=== PATIENT | female | born 1945 | race Caucasian/White ===

== ENCOUNTER → 2017-11-03 10:26 | Outpatient (CLI) | payer OTHER, SELFPAY ==
--- NOTE | 2017-11-03 | DI.MG.S_ITS ---
BILATERAL DIGITAL SCREENING MAMMOGRAM 3D/2D WITH CAD: 11/03/2017 CLINICAL: Baseline exam by default. Routine screening. No prior exams were available for comparison. There are scattered fibroglandular elements in both breasts. Current study was also evaluated with a Computer Aided Detection (CAD) system. No significant masses, calcifications, or other findings are seen in either breast. IMPRESSION: NEGATIVE There is no mammographic evidence of malignancy. A 1 year screening mammogram is recommended. This exam was interpreted at Station ID: [id number]. NOTE: For mammograms, a report in lay terms will be sent to the patient. Approximately 15% of breast malignancies will not be visualized mammographically. In the management of a palpable breast mass, a negative mammogram must not discourage biopsy of a clinically suspicious lesion. Electronically Signed By: Lc alex/ledy:11/04/2017 07:32:04 letter sent: Normal Exam ACR BI-RADS Category 1: Negative 3341F
== END ==
PROVIDERS: PCP Internal Medicine; Visit Provider Internal Medicine
DX: Z12.31 Encounter for screening mammogram for malignant neoplasm of breast (principal)
CPT/HCPCS: 77063; 77067

== ENCOUNTER → 2018-01-12 07:18 | Outpatient (CLI) | payer OTHER, SELFPAY ==
[2018-01-12 08:07] LABS: Alanine Aminotransferase 30 IU/L (9-52); Aspartate Aminotransferase 26 IU/L (14-36); BUN Creatinine Ratio 24.3 (6-22); Blood Urea Nitrogen 17 mg/dL (7-17); Calcium 8.9 mg/dL (8.4-10.2); Carbon Dioxide 32 mmol/L (22-32); Chloride 103 mmol/L (98-107); Cholesterol 248 mg/dL (140-199); Estimated Glomerular Filt Rate > 60.0 mL/min (>60); Glucose 106 mg/dL (80-110); HDL Cholesterol 56 mg/dL (40-60); HEMOLYSIS < 15 (0-50); LDL Cholesterol Calculated 160 mg/dL (<100); Potassium 4.1 mmol/L (3.4-5.1); Sodium 144 mmol/L (137-145); Triglycerides 158 mg/dL (35-150)
[2018-01-12 09:14] LABS: Vitamin D 25 Hydroxy (D3) 28.5 ng/mL (30.0-100.0)
== END ==
PROVIDERS: PCP Internal Medicine; Visit Provider Internal Medicine
DX: M85.80 Other specified disorders of bone density and structure, unspecified site (principal); E78.5 Hyperlipidemia, unspecified; E55.9 Vitamin D deficiency, unspecified
CPT/HCPCS: 36415; 80048; 80061; 82306; 84450; 84460

== ENCOUNTER → 2018-11-12 09:15 | Outpatient (CLI) | payer OTHER, SELFPAY ==
--- NOTE | 2018-11-12 | DI.MG.S_ITS ---
BILATERAL DIGITAL SCREENING MAMMOGRAM 3D/2D WITH CAD: 11/12/2018 CLINICAL: Routine screening. Comparison is made to exam dated: 11/03/2017 [facility]. There are scattered fibroglandular elements in both breasts. Current study was also evaluated with a Computer Aided Detection (CAD) system. No significant masses, calcifications, or other findings are seen in either breast. There has been no significant interval change. IMPRESSION: NEGATIVE There is no mammographic evidence of malignancy. A 1 year screening mammogram is recommended. This exam was interpreted at Station ID: [id number]. NOTE: For mammograms, a report in lay terms will be sent to the patient. Approximately 15% of breast malignancies will not be visualized mammographically. In the management of a palpable breast mass, a negative mammogram must not discourage biopsy of a clinically suspicious lesion. Electronically Signed By: Uriel nolasco/ledy:11/14/2018 07:43:25 letter sent: Normal Exam ACR BI-RADS Category 1: Negative 3341F
== END ==
PROVIDERS: PCP Internal Medicine; Visit Provider Internal Medicine
DX: Z12.31 Encounter for screening mammogram for malignant neoplasm of breast (principal)
CPT/HCPCS: 77063; 77067

== ENCOUNTER → 2020-06-12 10:12 | Outpatient (CLI) | payer OTHER, SELFPAY ==
--- NOTE | 2020-06-12 10:14 | DI.MG.S_ITS ---
BILATERAL DIGITAL SCREENING MAMMOGRAM 3D/2D WITH CAD: 06/12/2020 CLINICAL: Routine screening. Comparison is made to exams dated: 11/12/2018 mammogram and 11/03/2017 mammogram - [facility]. There are scattered fibroglandular elements in both breasts. Current study was also evaluated with a Computer Aided Detection (CAD) system. No significant masses, calcifications, or other findings are seen in either breast. There has been no significant interval change. IMPRESSION: NEGATIVE There is no mammographic evidence of malignancy. A 1 year screening mammogram is recommended. This exam was interpreted at Station ID: [id number]. NOTE: For mammograms, a report in lay terms will be sent to the patient. Approximately 15% of breast malignancies will not be visualized mammographically. In the management of a palpable breast mass, a negative mammogram must not discourage biopsy of a clinically suspicious lesion. Electronically Signed By: Uriel nolasco/ledy:06/12/2020 13:13:37 letter sent: Normal Exam ACR BI-RADS Category 1: Negative 3341F
== END ==
PROVIDERS: PCP Student in an Organized Health Care Education/Training Program; Referring Provider Student in an Organized Health Care Education/Training Program; Visit Provider Student in an Organized Health Care Education/Training Program
DX: Z12.31 Encounter for screening mammogram for malignant neoplasm of breast (principal); Z78.0 Asymptomatic menopausal state; M85.852 Other specified disorders of bone density and structure, left thigh
CPT/HCPCS: 77063; 77067; 77080

== ENCOUNTER → 2021-05-26 10:01 | Outpatient (CLI) | payer OTHER, SELFPAY ==
[2021-05-26 10:52] LABS: Add Manual Diff / Slide Review NO; Basophils Absolute Auto 100 /uL (0-100); Basophils Percent Auto 0.9 % (0-2); Eosinophils Absolute Auto 300 /uL (0-450); Eosinophils Percent Auto 5.4 % (2-4); Hematocrit 40.5 % (36-46); Hemoglobin 13.8 g/dL (12.0-16.0); Lymphocytes Absolute Auto 2000 /uL (1100-4500); Mean Corpuscular HGB Conc 34.1 % (30-36); Mean Corpuscular Hemoglobin 30.2 PG (26-34); Mean Corpuscular Volume 88.7 fL (80-100); Monocytes Absolute Auto 400 /uL (0-900); Monocytes Percent Auto 6.5 % (3-14); Neutrophils Absolute Auto 3300 /uL (1500-7000); Neutrophils Percent Auto 54.2 % (50-75); Platelet Count 295 X10^3/uL (150-400); Red Blood Cell Count 4.57 X10^6/uL (4.0-5.2); Red Cell Distribution Width 12.4 % (11.6-14.8); White Blood Cell Count 6.1 X10^3/uL (4.5-11.0)
[2021-05-26 11:30] LABS: Alanine Aminotransferase 24 IU/L (<35); Albumin 4.5 g/dL (3.5-5.0); Albumin Globulin Ratio 1.5 (1.0-2.8); Alkaline Phosphatase 84 U/L (38-126); Aspartate Aminotransferase 24 IU/L (14-36); BUN Creatinine Ratio 21.3 (6-22); Bilirubin Total 0.6 mg/dL (0.2-1.3); Blood Urea Nitrogen 17 mg/dL (7-17); Calcium 9.6 mg/dL (8.4-10.2); Carbon Dioxide 29 mmol/L (22-32); Chloride 104 mmol/L (98-107); Estimated Glomerular Filt Rate > 60.0 mL/min (>60); Glucose 109 mg/dL (80-110); HEMOLYSIS < 15 (0-50); Potassium 4.6 mmol/L (3.4-5.1); Sodium 139 mmol/L (137-145); Total Protein 7.5 g/dL (6.3-8.2)
[2021-05-26 11:37] LABS: Vitamin D 25 Hydroxy (D3) 51.1 ng/mL (30.0-100.0)
== END ==
PROVIDERS: PCP Student in an Organized Health Care Education/Training Program; Referring Provider Student in an Organized Health Care Education/Training Program; Visit Provider Student in an Organized Health Care Education/Training Program
DX: E55.9 Vitamin D deficiency, unspecified (principal); B35.1 Tinea unguium; Z11.59 Encounter for screening for other viral diseases; Z79.899 Other long term (current) drug therapy
CPT/HCPCS: 36415; 80053; 82306; 85025; 87522

== ENCOUNTER → 2021-06-16 10:26 | Outpatient (CLI) | payer OTHER, SELFPAY ==
--- NOTE | 2021-06-16 10:27 | DI.MG.S_ITS ---
BILATERAL DIGITAL SCREENING MAMMOGRAM 3D/2D WITH CAD: 06/16/2021 CLINICAL: Routine screening. Comparison is made to exams dated: 06/12/2020 mammogram, 11/12/2018 mammogram, and 11/03/2017 mammogram - [facility]. There are scattered fibroglandular elements in both breasts. Current study was also evaluated with a Computer Aided Detection (CAD) system. No significant masses, calcifications, or other findings are seen in either breast. There has been no significant interval change. IMPRESSION: NEGATIVE There is no mammographic evidence of malignancy. A 1 year screening mammogram is recommended. This exam was interpreted at Station ID: [id number]. NOTE: For mammograms, a report in lay terms will be sent to the patient. Approximately 15% of breast malignancies will not be visualized mammographically. In the management of a palpable breast mass, a negative mammogram must not discourage biopsy of a clinically suspicious lesion. Electronically Signed By: Uriel león/ledy:06/16/2021 12:51:25 letter sent: Normal Exam ACR BI-RADS Category 1: Negative 3341F
== END ==
PROVIDERS: PCP Student in an Organized Health Care Education/Training Program; Referring Provider Student in an Organized Health Care Education/Training Program; Visit Provider Student in an Organized Health Care Education/Training Program
DX: Z12.31 Encounter for screening mammogram for malignant neoplasm of breast (principal)
CPT/HCPCS: 77063; 77067

== ENCOUNTER → 2021-07-15 07:41 | Outpatient (CLI) | payer OTHER, SELFPAY | PROVIDERS: PCP Student in an Organized Health Care Education/Training Program; Visit Provider Physician Assistant | DX: L01.00 Impetigo, unspecified (principal) | CPT/HCPCS: 87070; 87205 ==

== ENCOUNTER → 2022-04-16 14:20 | Outpatient (CLI) | payer OTHER, SELFPAY ==
[2022-04-16 15:24] LABS: BUN Creatinine Ratio 22.5 (6-22); Blood Urea Nitrogen 16 mg/dL (7-17); Calcium 9.2 mg/dL (8.4-10.2); Carbon Dioxide 29 mmol/L (22-32); Chloride 103 mmol/L (98-107); Cholesterol 224 mg/dL (140-199); Estimated Glomerular Filt Rate > 60 mL/min (>60); Glucose 99 mg/dL (80-110); HDL Cholesterol 56 mg/dL (40-60); HEMOLYSIS < 15 (0-50); LDL Cholesterol Calculated 138 mg/dL (<100); Potassium 4.3 mmol/L (3.4-5.1); Sodium 139 mmol/L (137-145); Triglycerides 151 mg/dL (35-150)
== END ==
PROVIDERS: PCP Student in an Organized Health Care Education/Training Program; Referring Provider Student in an Organized Health Care Education/Training Program; Visit Provider Student in an Organized Health Care Education/Training Program
DX: E78.00 Pure hypercholesterolemia, unspecified (principal); N17.9 Acute kidney failure, unspecified
CPT/HCPCS: 36415; 80048; 80061

== ENCOUNTER → 2022-06-15 09:41 | Outpatient (CLI) | payer OTHER, SELFPAY ==
--- NOTE | 2022-06-15 09:56 | DI.DEXA.S_ITS ---
Bone Density Report Name: JEFF RODRÍGUEZ Age: 77 Sex: Female Ethnicity: White Date of : 1945 Indication: osteopenia; Referring Provider: NIKHIL ANDREWS Study: Bone densitometry was performed. Exam Date: June 15, 2022 Accession number: [id number] Bone Density: Region BMD T-score Z-score Classification AP Spine(L1, L2, L3) 0.917 -0.9 1.5 Normal Femoral Neck (Left) 0.589 -2.3 -0.2 Osteopenia Total Hip (Left) 0.785 -1.3 0.5 Osteopenia Femoral Neck (Right) 0.666 -1.7 0.4 Osteopenia Total Hip (Right) 0.817 -1.0 0.8 Normal Total Hip Mean 0.801 -1.2 0.7 Osteopenia World Health Organization criteria for BMD impression classify patients as: Normal (T-score at or above -1.0), Osteopenia (T-score between -1.0 and -2.5), or Osteoporosis (T-score at or below -2.5). 10-year Fracture Risk(1): Major Osteoporotic Fracture 15% Hip Fracture 4.3% Reported Risk Factors: [place] (), Neck BMD=0.589, BMI=25.7 (1) FRAX(R) Version 3.08. Fracture probability calculated for an untreated patient. Fracture probability may be lower if the patient has received treatment. Previous Exams: -- Region Exam Age BMD T-score BMD Change BMD Change Date g/cm2 vs Baseline vs Previous -- AP Spine (L1-L3) 06/15/2022 77 0.917 -0.9 0.018 (2.0%)# 0.018 (2.0%)# 06/12/2020 75 0.899 -1.1 Total Hip(Left) 06/15/2022 77 0.785 -1.3 -0.013 (-1.6%)# -0.013 (-1.6%)# 06/12/2020 75 0.798 -1.2 Total Hip(Right) 06/15/2022 77 0.817 -1.0 -0.001 (-0.1%)# -0.001 (-0.1%)# 06/12/2020 75 0.817 -1.0 -- *Denotes significance at 95% confidence level, LSC for AP Spine = 0.022 g/cm2, LSC for Total Hip = 0.027 g/cm2 # Denotes dissimilar scan types or analysis methods Impression: The patient has low bone mass, based on the Left Femoral Neck T-score. The patient has an estimated ten-year risk of hip fracture of 4.3% and an estimated ten-year risk of major fracture of 15%, based on the WHO FRAX algorithm. No significant bone loss was observed. Discussion: BONE DENSITY IS LOW AT ONE OR MORE SKELETAL SITES. THE PATIENT'S BMD AND CLINICAL RISK FACTORS CONTRIBUTE TO THIS PATIENT'S INCREASED RISK OF FRACTURE. This patient's lowest T-score is low at one or more skeletal sites. It meets the World Health Organization's (WHO) criteria for ?low bone mass? (T-score between -1.0 and -2.5). The patient's 10-year risk of hip fracture as calculated by FRAX exceeds the threshold where pharmacological therapy is recommended by the National Osteoporosis Foundation (NOF). However, all treatment decisions require clinical judgment and consideration of individual patient factors, including patient preferences, comorbidities, previous drug use, risk factors not captured in the FRAX model (e.g., frailty, falls, vitamin D deficiency, increased bone turnover, interval significant decline in bone density) and possible under or overestimation of fracture risk by FRAX. The patient should follow a healthful lifestyle (good nutrition with adequate calcium and vitamin D, and appropriate weight-bearing exercise). Follow-Up: Consider a repeat BMD and Vertebral Fracture Assessment (VFA) exam in 2 years or sooner if medically necessary, to reassess this patient's status. Reported by: HOLA STRANGE M.D. on 06/15/2022 10:03:00 AM.
== END ==
PROVIDERS: PCP Student in an Organized Health Care Education/Training Program; Referring Provider Student in an Organized Health Care Education/Training Program; Visit Provider Student in an Organized Health Care Education/Training Program
DX: Z78.0 Asymptomatic menopausal state (principal); M85.852 Other specified disorders of bone density and structure, left thigh
CPT/HCPCS: 77080

== ENCOUNTER → 2022-07-07 14:24 | Outpatient (CLI) | payer OTHER, SELFPAY ==
--- NOTE | 2022-07-07 | DI.MG.S_ITS ---
BILATERAL DIGITAL SCREENING MAMMOGRAM 3D/2D WITH CAD: 07/07/2022 CLINICAL: Routine screening. Comparison is made to exams dated: 06/16/2021 mammogram, 06/12/2020 mammogram, 11/12/2018 mammogram, and 11/03/2017 mammogram - [facility]. There are scattered areas of fibroglandular density in both breasts (category b / 25%-50% glandular tissue). Current study was also evaluated with a Computer Aided Detection (CAD) system. No significant masses, calcifications, or other findings are seen in either breast. There has been no significant interval change. IMPRESSION: NEGATIVE There is no mammographic evidence of malignancy. A 1 year screening mammogram is recommended. Based on the Tyrer Cuzick model (a risk assessment model) the patient's lifetime risk is 3.7% and her 10 year risk is 3.7%. According to the ACR, ACS, and NCCN guidelines, an annual breast MRI exam along with mammogram is recommended if the patient's lifetime risk is 20% or greater. This exam was interpreted at Station ID: [id number]. NOTE: For mammograms, a report in lay terms will be sent to the patient. Approximately 15% of breast malignancies will not be visualized mammographically. In the management of a palpable breast mass, a negative mammogram must not discourage biopsy of a clinically suspicious lesion. Electronically Signed By: Jitendra leonard/ledy:07/07/2022 16:03:50 letter sent: Normal Exam ACR BI-RADS Category 1: Negative 3341F
== END ==
PROVIDERS: PCP Pediatrics; Referring Provider Pediatrics; Visit Provider Pediatrics
DX: Z12.31 Encounter for screening mammogram for malignant neoplasm of breast (principal)
CPT/HCPCS: 77063; 77067

== ENCOUNTER → 2022-10-27 08:00 | Outpatient (CLI) | payer OTHER, SELFPAY ==
[2022-10-28 16:26] LABS: Fecal Immunochemical Test Negative (Negative)
== END ==
PROVIDERS: PCP Pediatrics; Referring Provider Student in an Organized Health Care Education/Training Program; Visit Provider Student in an Organized Health Care Education/Training Program
DX: Z12.11 Encounter for screening for malignant neoplasm of colon (principal)
CPT/HCPCS: 82274

== ENCOUNTER 2022-11-03 23:21 | Inpatient (IN) | payer OTHER, SELFPAY ==
[2022-11-03 23:27] VITALS: BP 146/99; PULSE 78; RESP 18; TEMP 36.5; BMI 25.0
--- NOTE | 2022-11-03 23:35 | DI.RAD.S_ITS ---
PROCEDURE: XR HIP W PEL IF DONE LT 2V INDICATIONS: fall TECHNIQUE: AP pelvis with lateral view of the left hip. COMPARISON: None. FINDINGS: Bones: There is a subcapital fracture of the left femoral neck with mild superior displacement. The mild degenerative changes within the hips. Pelvic ring appears intact. No suspicious bony lesions. Soft tissues: The visualized bowel gas pattern is normal. No suspicious soft tissue calcifications. IMPRESSION: 1. Subcapital left hip fracture. Dictated by: Matthieu Chiang M.D. on 11/04/2022 at 0:38 Approved by: Matthieu Chiang M.D. on 11/04/2022 at 0:40
[2022-11-03 23:38] VITALS: PULSE 81; O2SAT 91
[2022-11-04] VITALS (24 sets, daily range): BP systolic 103–139; BP diastolic 28–69; PULSE 65–97; RESP 7–18; TEMP 36.1–36.7; O2SAT 87–100; BMI 25.0
--- NOTE | 2022-11-04 00:34 | DI.RAD.S_ITS ---
PROCEDURE: XR CHEST 1V INDICATIONS: pre-op TECHNIQUE: One view of the chest was acquired. COMPARISON: None. FINDINGS: Surgical changes and devices: None. Lungs and pleura: Lungs are clear. No pleural effusions or pneumothorax. Mediastinum: Mediastinal contours appear normal. Heart size is normal. Bones and chest wall: No suspicious bony lesions. Overlying soft tissues appear unremarkable. IMPRESSION: 1. No acute cardiopulmonary disease. Dictated by: Matthieu Chiang M.D. on 11/04/2022 at 1:09 Approved by: Matthieu Chiang M.D. on 11/04/2022 at 1:10
[2022-11-04] MEDS: HYDROMORPHONE 0.5 MG INJ IV ×5 (00:37→14:31)
--- NOTE | 2022-11-04 00:42 | ED.FALL ---
HPI - Fall General Chief Complaint: Fall Stated Complaint: GLF Time Seen by Provider: 11/04/22 00:32 Source: patient Mode of arrival: EMS History of Present Illness HPI Narrative: Essentially healthy 77-year-old woman with mild glaucoma rarely sees physicians was chasing after her dog stumbled falling on her left hip and was unable to get off the ground. She reports no recent fevers, cough, chills, is not having any nausea, vomiting, chest pain abdominal pain. Related Data Home Medications Medication Instructions Recorded Confirmed brimonidine 0.2 % eye drops drp EYE-BOTH 05/07/20 05/13/22 timolol maleate 0.5 % eye drops drp EYE-BOTH 05/07/20 05/13/22 Allergies Allergy/AdvReac Type Severity Reaction Status Date / Time codeine AdvReac Mild Nausea Verified 05/13/22 13:55 Review of Systems Review of Systems Narrative: holding her neck in extension. Not complaining of pain when her neck or lower back is manipulated. Patient History Medical History (Updated 11/04/22 @ 01:05 by Sushma Vickers MD) Closed left hip fracture Glaucoma Pure hypercholesterolemia Social History Smoking Status: Never smoker Smoking Status: Never smoker Exam Initial Vital Signs Initial Vital Signs: Vital Signs Temperature 97.7 F 11/03/22 23:27 Pulse Rate 78 11/03/22 23:27 Respiratory Rate 18 11/03/22 23:27 Blood Pressure 146/99 H 11/03/22 23:27 General: Healthy appearing, in no acute distress. Able to give a complete and coherent history. Well-nourished well-developed HEENT: Moist mucous membranes, normal sclera with reactive pupils, Neck: No cervical spine tenderness supple Respiratory: Lungs are clear to auscultation, no wheezing no rales no rhonchi. Full and symmetrical air movement Cardiac: Regular rate and rhythm no murmurs no bruits Abdomen: Soft, nontender, good bowel tones, no flank pain Skin: Warm and dry, no rashes Neurologic: Grossly neurologically intact with no obvious asymmetries or abnormalities Extremities: Left leg is slightly foreshortened and internally rotated. She has tenderness at the left hip. She is got a minor contusion on the distal lateral aspect of her calf. She is otherwise neurovascularly intact. Psych: Cooperative, appropriate insight and affect Course Orders Ordered: ED Orders 11/03/22 23:35 XR hip w pel if done LT 2V Stat 11/04/22 00:34 CXR [XR chest 1V] Stat EKG-12 Lead Stat 11/04/22 01:10 Complete Blood Count AUTO DIFF Stat Comprehensive Metabolic Panel Stat PTT Partial Thromboplastin Levy Stat Prothrombin Time INR Stat Hydromorphone HCl (Hydromorphone 0.5 Mg Inj) 0.5 mg IV Q15MIN PRN PRN Reason: Pain, Last Admin: 11/04/22 00:37 Dose: 0.5 mg Documented By: HIPOLITO Vital Signs Vital signs: Vital Signs - 8 hr 11/03/22 23:27 11/03/22 23:38 11/04/22 00:01 Temperature 97.7 F Pulse Rate 78 81 78 Respiratory Rate 18 Blood Pressure 146/99 H Pulse Oximetry 91 96 11/04/22 00:30 Temperature Pulse Rate 85 Respiratory Rate Blood Pressure Pulse Oximetry 91 MDM - Fall Lab Data 11/04/22 01:10 11/04/22 01:10 Labs: Lab Results 11/04/22 11/04/22 11/04/22 Range/Units 01:10 01:10 01:10 WBC 13.7 H (4.5-11.0) X10^3/uL RBC 4.21 (4.0-5.2) X10^6/uL Hgb 12.9 (12.0-16.0) g/dL Hct 37.9 (36-46) % MCV 89.8 (80-100) fL MCH 30.5 (26-34) PG MCHC 33.9 (30-36) % RDW 12.0 (11.6-14.8) % Plt Count 272 (150-400) X10^3/uL Neut % (Auto) 84.8 H (50-75) % Lymph % (Auto) 8.9 L (25-40) % [place] % (Auto) 5.7 (3-14) % Eos % (Auto) 0.2 L (2-4) % Baso % (Auto) 0.4 (0-2) % Neut # (Auto) 71203 H (0371-6099) /uL Lymph # (Auto) 1200 (2303-6007) /uL [place] # (Auto) 800 (0-900) /uL Eos # (Auto) 0 (0-450) /uL Baso # (Auto) 100 (0-100) /uL PT 11.4 (10.1-12.7) SECONDS INR 1.0 (0.9-1.3) APTT 26 (26-36) SECONDS Sodium 137 (137-145) mmol/L Potassium 4.1 (3.4-5.1) mmol/L Chloride 102 (98-107) mmol/L Carbon Dioxide 26 (22-32) mmol/L BUN 18 H (7-17) mg/dL Creatinine 0.60 (0.52-1.04) mg/dL Estimated GFR > 60 (>60) mL/min BUN/Creatinine Ratio 30.0 H (6-22) Glucose 124 H (80-110) mg/dL Calcium 8.8 (8.4-10.2) mg/dL Total Bilirubin 0.5 (0.2-1.3) mg/dL AST 46 H (14-36) IU/L ALT 35 H (<35) IU/L Alkaline Phosphatase 95 (38-126) U/L Total Protein 7.3 (6.3-8.2) g/dL Albumin 4.1 (3.5-5.0) g/dL Globulin 3.2 (1.7-4.1) g/dL Albumin/Globulin Ratio 1.3 (1.0-2.8) MDM Narrative Medical decision making narrative: CC: Left hip fracture Complicating co-morbidities: Glaucoma, minimal interactions with physicians Data collected from: patient, Differential considered: Hip fracture hip contusion, pelvic fracture, lumbar spine fracture Exam documented above, pertinent findings include: Mild tenderness over the lateral aspect of the hip without significant contusion. Tenderness with any movement of her leg. She is neurovascularly intact distal. Remainder of exam is benign Lab Test results independently reviewed as above. Pertinent findings: Independently reviewed EKG sinus rhythm at a rate of 80, normal intervals, normal axis no acute ischemic changes Imaging studies independently reviewed: Hip x-ray shows subcapital left hip fracture Consultations: Dr. Maciel, orthopedics. Will consult and anticipate surgical intervention for this patient. Does request medicine admission. Will discuss with Dr Coles, hospitalist. Treatments: Parenteral narcotics for pain control, Porter catheter placement for comfort Re-evaluations: After parenteral Dilaudid, pain is much better controlled. Discussion: 77-year-old woman with mechanical fall and left subcapital hip fracture will need surgical repair. Will be admitted to the medicine service and orthopedic consultation. Findings reviewed with the patient who understands. Discharge Plan Departure Patient Disposition: Admitted As Inpatient Clinical Impression: Closed hip fracture Qualifiers: Encounter type: initial encounter Laterality: left Qualified Code(s): S72.002A - Fracture of unspecified part of neck of left femur, initial encounter for closed fracture
[2022-11-04 01:20] LABS: Add Manual Diff / Slide Review NO; Basophils Absolute Auto 100 /uL (0-100); Basophils Percent Auto 0.4 % (0-2); Eosinophils Absolute Auto 0 /uL (0-450); Eosinophils Percent Auto 0.2 % (2-4); Hematocrit 37.9 % (36-46); Hemoglobin 12.9 g/dL (12.0-16.0); Lymphocytes Absolute Auto 1200 /uL (1100-4500); Lymphocytes Percent Auto 8.9 % (25-40); Mean Corpuscular HGB Conc 33.9 % (30-36); Mean Corpuscular Hemoglobin 30.5 PG (26-34); Mean Corpuscular Volume 89.8 fL (80-100); Monocytes Absolute Auto 800 /uL (0-900); Monocytes Percent Auto 5.7 % (3-14); Neutrophils Absolute Auto 11600 /uL (1500-7000); Neutrophils Percent Auto 84.8 % (50-75); Platelet Count 272 X10^3/uL (150-400); Red Blood Cell Count 4.21 X10^6/uL (4.0-5.2); White Blood Cell Count 13.7 X10^3/uL (4.5-11.0)
[2022-11-04 01:25] LABS: Prothrombin Time 11.4 SECONDS (10.1-12.7)
[2022-11-04 01:27] LABS: PTT Partial Thromboplastin Tim 26 SECONDS (26-36)
[2022-11-04 01:29] LABS: Alanine Aminotransferase 35 IU/L (<35); Albumin 4.1 g/dL (3.5-5.0); Albumin Globulin Ratio 1.3 (1.0-2.8); Alkaline Phosphatase 95 U/L (38-126); Aspartate Aminotransferase 46 IU/L (14-36); Bilirubin Total 0.5 mg/dL (0.2-1.3); Blood Urea Nitrogen 18 mg/dL (7-17); Calcium 8.8 mg/dL (8.4-10.2); Carbon Dioxide 26 mmol/L (22-32); Chloride 102 mmol/L (98-107); Estimated Glomerular Filt Rate > 60 mL/min (>60); Globulin 3.2 g/dL (1.7-4.1); Glucose 124 mg/dL (80-110); HEMOLYSIS < 15 (0-50); Potassium 4.1 mmol/L (3.4-5.1); Sodium 137 mmol/L (137-145); Total Protein 7.3 g/dL (6.3-8.2)
--- NOTE | 2022-11-04 02:53 | PM.HP.1 ---
History of Present Illness History of Present Illness Chief complaint: GLF Narrative: 77-year-old woman was chasing after her dog stumbled falling on her left hip and was unable to get off the ground.? She reports no recent fevers, cough, chills, is not having any nausea, vomiting, chest pain abdominal pain. she denies LOC or head trauma. imaging showed left femoral neck fracure and orthopedics asked admission by medicine and possible surgery. [facility] Medical History (Updated 11/04/22 @ 01:05 by Sushma Vickers MD) Closed left hip fracture Glaucoma Pure hypercholesterolemia Social History Smoking Status: Never smoker Meds Home Medications and Allergies Home Medications Medication Instructions Recorded Confirmed Type brimonidine 0.2 % eye drops drp EYE-BOTH 05/07/20 05/13/22 History timolol maleate 0.5 % eye drops drp EYE-BOTH 05/07/20 05/13/22 History Allergies Allergy/AdvReac Type Severity Reaction Status Date / Time codeine AdvReac Mild Nausea Verified 05/13/22 13:55 Review of Systems Review of Systems Narrative: all systems reviwed negative except what was mentioned in the Hpi Exam Vital Signs (past 8 hours): - 11/03/22 23:27 11/03/22 23:38 11/04/22 00:01 Temperature 97.7 F Pulse Rate 78 81 78 Respiratory Rate 18 Blood Pressure 146/99 H Pulse Oximetry 91 96 11/04/22 00:30 11/04/22 01:00 11/04/22 01:30 Temperature Pulse Rate 85 77 75 Respiratory Rate Blood Pressure Pulse Oximetry 91 92 89 L 11/04/22 02:00 11/04/22 02:10 11/04/22 02:11 Temperature Pulse Rate 75 71 Respiratory Rate 18 Blood Pressure 122/69 Pulse Oximetry 91 96 Const General: comfortable HENMT Head: normal to inspection Neck Neck: normal visual inspection Cardio Rate: regular rate Rhythm: regular rhythm GI Inspection: normal to inspection Neuro General: patient alert, patient awake and patient oriented x3 Extrem Other: tender left hip area Objective Labs 11/04/22 01:10 11/04/22 01:10 Labs: Laboratory Results - last 24 hr 11/04/22 11/04/22 11/04/22 01:10 01:10 01:10 WBC 13.7 H RBC 4.21 Hgb 12.9 Hct 37.9 MCV 89.8 MCH 30.5 MCHC 33.9 RDW 12.0 Plt Count 272 Neut % (Auto) 84.8 H Lymph % (Auto) 8.9 L [place] % (Auto) 5.7 Eos % (Auto) 0.2 L Baso % (Auto) 0.4 Neut # (Auto) 85009 H Lymph # (Auto) 1200 [place] # (Auto) 800 Eos # (Auto) 0 Baso # (Auto) 100 PT 11.4 INR 1.0 APTT 26 Sodium 137 Potassium 4.1 Chloride 102 Carbon Dioxide 26 BUN 18 H Creatinine 0.60 Estimated GFR > 60 BUN/Creatinine Ratio 30.0 H Glucose 124 H Calcium 8.8 Total Bilirubin 0.5 AST 46 H ALT 35 H Alkaline Phosphatase 95 Total Protein 7.3 Albumin 4.1 Globulin 3.2 Albumin/Globulin Ratio 1.3 Assessment & Plan Assessment & Plan narrative: 77 y/o F # mechanical fall and left femoral neck fracture: possible surgery orto consulted # full code #leukocytosis: probably stress, monitor # scd boots
[2022-11-04] MEDS: DEXTROSE 5%-0.45% NS 1,000 ML 100 ML IV ×2 (03:35→14:30)
--- NOTE | 2022-11-04 05:10 | PC.ADMIT ---
[email or web address] Admission Note: The patient,Pilar Cruz,77 y/o, was given written information regarding hospital policies, unit procedures and contact persons. Patient's smoking status: Never smoker. Vital Signs - 8 hr 11/03/22 23:27 11/03/22 23:38 11/04/22 00:01 Temperature 97.7 F Pulse Rate 78 81 78 Respiratory Rate 18 Blood Pressure 146/99 H Pulse Oximetry 91 96 Oxygen Delivery Method Oxygen Flow Rate 11/04/22 00:30 11/04/22 01:00 11/04/22 02:00 Temperature Pulse Rate 85 77 75 Respiratory Rate Blood Pressure Pulse Oximetry 91 92 91 Oxygen Delivery Method Oxygen Flow Rate 11/04/22 02:10 11/04/22 02:11 11/04/22 02:11 Temperature Pulse Rate 71 69 Respiratory Rate 18 Blood Pressure 122/69 Pulse Oximetry 96 92 Oxygen Delivery Method Oxygen Flow Rate 11/04/22 02:30 11/04/22 03:00 11/04/22 03:35 Temperature 97.6 F Pulse Rate 72 71 66 Respiratory Rate 18 Blood Pressure 123/65 Pulse Oximetry 92 92 97 Oxygen Delivery Method Oxygen Flow Rate 0 11/04/22 04:38 Temperature Pulse Rate Respiratory Rate Blood Pressure Pulse Oximetry Oxygen Delivery Method Room Air Oxygen Flow Rate Patient admitted to room 206 at 0335 from ER per stretcher and transferred into bed with slider board. Is alert and oriented. Breath sounds CTA with RA sat of 97%. HRR. Denied nausea. BT present and abdomen is soft. Indwelling catheter is patent; urine is clear yellow. Is able to reposition minimally so will have staff assist to position of comfort as she requests; assisted to turn onto right side with pillow and Ayala bed tilted. Dry skin on bilateral shins and bottom of feet otherwise no skin issues noted. Bilateral calf SCD's applied. Stated pain only 1/10 at time of assessment. Fall risk score is moderate so bed alarm not activated at this time. Instructed in NPO status and provided with lemon glycerin swabs. Oriented to call light and bed controls.
--- NOTE | 2022-11-04 07:45 | P.HP_ITS ---
History of Present Illness History of Present Illness Date Patient Seen: 11/04/22 Time Patient Seen: 07:45 Date of Onset of Symptoms: 11/03/22 Chief complaint: GLF Narrative: This is a pleasant 77-year-old female who was stepping over a dog gate when she caught her left foot and noted the acute onset of left hip pain. She is otherwise healthy she really has no medical problems. She was not short of breath or lightheaded prior to the fall. She notes some ongoing left hip pain. She normally is physically active and has a large lawn that she likes to move. [facility] Medical History Closed left hip fracture Glaucoma Pure hypercholesterolemia Social History household members: spouse Smoking Status: Never smoker alcohol intake: current Meds Home Medications and Allergies Home Medications Medication Instructions Recorded Confirmed Type brimonidine 0.2 % eye drops 1 drp EYE-BOTH BID 11/04/22 11/04/22 History timolol maleate 0.5 % eye drops 1 drp EYE-BOTH BID 11/04/22 11/04/22 History Allergies Allergy/AdvReac Type Severity Reaction Status Date / Time codeine AdvReac Mild Nausea Verified 05/13/22 13:55 Review of Systems Review of Systems Narrative: Negative in detail Exam Vital Signs (past 8 hours): - 11/04/22 00:01 11/04/22 00:30 11/04/22 01:00 Temperature Pulse Rate 78 85 77 Respiratory Rate Blood Pressure Pulse Oximetry 96 91 92 Oxygen Delivery Method Oxygen Flow Rate 11/04/22 02:00 11/04/22 02:10 11/04/22 02:11 Temperature Pulse Rate 75 71 Respiratory Rate 18 Blood Pressure 122/69 Pulse Oximetry 91 96 Oxygen Delivery Method Oxygen Flow Rate 11/04/22 02:11 11/04/22 02:30 11/04/22 03:00 Temperature Pulse Rate 69 72 71 Respiratory Rate Blood Pressure Pulse Oximetry 92 92 92 Oxygen Delivery Method Oxygen Flow Rate 11/04/22 03:35 11/04/22 04:38 Temperature 97.6 F Pulse Rate 66 Respiratory Rate 18 Blood Pressure 123/65 Pulse Oximetry 97 Oxygen Delivery Method Room Air Oxygen Flow Rate 0 Oxygen Delivery Method Room Air Oxygen Flow Rate 0 Narrative Exam Narrative: She is resting in bed comfortably HEENT is benign lungs are clear cor regular rate and rhythm abdomen soft and benign examination of her left lower extremity shows pain with range of motion in the left hip, calf soft distally, Objective Labs 11/04/22 01:10 11/04/22 01:10 Labs: Laboratory Results - last 24 hr 11/04/22 11/04/22 11/04/22 01:10 01:10 01:10 WBC 13.7 H RBC 4.21 Hgb 12.9 Hct 37.9 MCV 89.8 MCH 30.5 MCHC 33.9 RDW 12.0 Plt Count 272 Neut % (Auto) 84.8 H Lymph % (Auto) 8.9 L [place] % (Auto) 5.7 Eos % (Auto) 0.2 L Baso % (Auto) 0.4 Neut # (Auto) 29124 H Lymph # (Auto) 1200 [place] # (Auto) 800 Eos # (Auto) 0 Baso # (Auto) 100 PT 11.4 INR 1.0 APTT 26 Sodium 137 Potassium 4.1 Chloride 102 Carbon Dioxide 26 BUN 18 H Creatinine 0.60 Estimated GFR > 60 BUN/Creatinine Ratio 30.0 H Glucose 124 H Calcium 8.8 Total Bilirubin 0.5 AST 46 H ALT 35 H Alkaline Phosphatase 95 Total Protein 7.3 Albumin 4.1 Globulin 3.2 Albumin/Globulin Ratio 1.3 x-rays show a displaced left femoral neck fracture Assessment & Plan Assessment and plan (1) Closed hip fracture: Qualifiers: Encounter type: initial encounter Laterality: left Qualified Code(s): S72.002A - Fracture of unspecified part of neck of left femur, initial encounter for closed fracture Status: Acute (2) Femoral neck fracture: Status: Acute Plan She has a displaced left femoral neck fracture. I have recommended a left hip unipolar. The procedure options risks benefits and complications discussed in detail. I told her we will work on getting it scheduled for her with myself in the afternoon or possibly Dr. Arana if he is available. The procedure options risks benefits and complications were discussed in detail. She understands and agrees we discussed concerns regarding hip instability postoperatively risks of additional fracture, risk of infection bleeding and need for anesthesia. She understands and agrees and were going to work on getting her scheduled.
--- NOTE | 2022-11-04 08:36 | CM.DANOTE ---
DCP: Case received, EMR reviewed and met with patient. Introduced self and role. Was able to obtain information regarding patient's baseline activity status prior to hospitalization. DCP assessment completed with information currently available. Patient is a 77 year old female who admitted early this morning to the care of the hospitalist team. PCP: Dr. Marcelino. Payer: confirmed: [facility] Advantage. Patient came to the hospital via ambulance secondary to having a ground level fall. Notes indicate that patient was chasing after her dog, stumbled, and fell. Patient was diagnosed with left hip fracture. She is scheduled for surgery today. Met with patient in her room. She is alert and oriented. Confirmed that she resides here in [place] with spouse, Jay. At her baseline she is independent. She hopes that she can go home after her surgery. P: DCP to continue to follow. Surgery is planned for today, and will have to see how she does with P.T, may be able to go home. Heather Saldaña RN/Hydrate Thickener Operator Discharge Planning/Care Management CM Discharge Assessment Start: 11/04/22 08:33 Freq: Status: Active Protocol: Document 11/04/22 08:33 (Rec: 11/04/22 08:35 [id number]) Discharge Planning Assessment Assigned [employer] Heather Saldaña RN/Hydrate Thickener Operator Advance Directives? No History Provided By Patient,Medical Record Prior Living Arrangements House Household Members spouse Type of transporation used prior to Drives own vehicle admit Independent with ADL's Yes Is patient alert and oriented? Yes Caregiver for Another No Comment Will have to see how she does post surgery with P.T. Barriers to Discharge No Discharge Plan Home Transportation Arrangement Spouse, or facility if skilled is needed Referrals Initiated Other Additional Comment Will have to see how patient does post surgery Whiteboard Updated in Patient Room with Yes name and ext. # of [employer] Review Status In Process Next Review Type Continued Stay Review
--- NOTE | 2022-11-04 09:35 | OT.IPNOTE ---
Pt to have sx this afternoon and therefore hold OT eval today.
--- NOTE | 2022-11-04 10:05 | PT-IP ANOTE ---
PT eval received. EMR reviewed and pt s/p GLF sustaining a L hip fx and pending sx this afternoon. will d/c PT eval and will await new PT order after sx. hospitalist agreed.
--- NOTE | 2022-11-04 10:06 | OT.IPNOTE ---
Pt to have sx at 1700, therefore discharge OT eval orders.
[2022-11-04] MEDS: ONDANSETRON 4 MG/2 ML INJ IV (12:06)
--- NOTE | 2022-11-04 12:41 | P.PN_ITS ---
Subjective Subjective Interval history: 77 F admitted with a L hip fracture. She takes no medications normally. Denies recent dyspnea on exertion, chest pain, edema. Exam Vital Signs (past 8 hours): - 11/04/22 08:30 11/04/22 08:00 Temperature 98.1 F Pulse Rate 65 Respiratory Rate 18 Blood Pressure 128/53 L Pulse Oximetry 92 Oxygen Delivery Method Room Air Oxygen Delivery Method Room Air Oxygen Flow Rate 0 Narrative Exam Narrative: Gen: NAD, WDWN Pulm: CTA b/l CV: RRR no m/r/g Abd: S NT ND Ext: pain with movement of L hip, no edema or joint effusions. Neuro: a&o x3 Objective Labs 11/04/22 01:10 11/04/22 01:10 Labs: Laboratory Results - last 24 hr 11/04/22 11/04/22 11/04/22 01:10 01:10 01:10 WBC 13.7 H RBC 4.21 Hgb 12.9 Hct 37.9 MCV 89.8 MCH 30.5 MCHC 33.9 RDW 12.0 Plt Count 272 Neut % (Auto) 84.8 H Lymph % (Auto) 8.9 L [place] % (Auto) 5.7 Eos % (Auto) 0.2 L Baso % (Auto) 0.4 Neut # (Auto) 03807 H Lymph # (Auto) 1200 [place] # (Auto) 800 Eos # (Auto) 0 Baso # (Auto) 100 PT 11.4 INR 1.0 APTT 26 Sodium 137 Potassium 4.1 Chloride 102 Carbon Dioxide 26 BUN 18 H Creatinine 0.60 Estimated GFR > 60 BUN/Creatinine Ratio 30.0 H Glucose 124 H Calcium 8.8 Total Bilirubin 0.5 AST 46 H ALT 35 H Alkaline Phosphatase 95 Total Protein 7.3 Albumin 4.1 Globulin 3.2 Albumin/Globulin Ratio 1.3 PFSH Medical History Closed left hip fracture Glaucoma Pure hypercholesterolemia Social History household members: spouse Smoking Status: Never smoker alcohol intake: current Assessment & Plan Assessment & Plan narrative: 1. L hip fracture, pathologic due to osteoporosis, present on admission. - appreciate orthopedic surgery consult, OR planned for today. Keep NPO. - PT / OT after surgery tomorrow. - continue pain control as needed, currently on IV dilaudid - zofran to continue for nausea in setting of pain 2. Elevated transaminase levels - outpatient follow up recommended, mild elevations only. Will continue to follow. - may be due to near daily wine consumption. 3. Leukocytosis - likely reactive due to fall and fracture. - continue to follow with CBC Code: full, surrogate is patient's spouse DVT: per primary service Dispo: inpatient, suspect home after discharge depending on mobility with PT/OT afterward, likely in a couple of days.
[2022-11-04] MEDS: LACTATED RINGERS 1,000 ML 42 ML IV ×3 (17:39→21:09)
--- NOTE | 2022-11-04 17:39 | SUR.HOLD ---
Patient vomited a small amount of clear fluid. Nausea passed quickly.
--- NOTE | 2022-11-04 17:43 | DI.RAD.S_ITS ---
PROCEDURE: XR HIP W PEL IF DONE LT 2V INDICATIONS: postop TECHNIQUE: AP pelvis with lateral view of the left hip. COMPARISON: [facility], CR, XR HIP W PEL IF DONE LT 2V, 11/03/2022, 23:42. FINDINGS: Bones: There are postsurgical changes status post left hip arthroplasty. There is near anatomic alignment. Soft tissues: Overlying postsurgical changes demonstrated along the left hip. IMPRESSION: 1. Postsurgical changes status post left hip arthroplasty. Dictated by: Matthieu Chiang M.D. on 11/04/2022 at 21:47 Approved by: Matthieu Chiang M.D. on 11/04/2022 at 21:48
[2022-11-04] MEDS: ACETAMINOPHEN 325 MG TABLET 975 MG PO (17:48)
--- NOTE | 2022-11-04 17:50 | PM.OP.1 ---
Operative Date/Time/Diagnoses Date of procedure: 11/04/22 Time of procedure: 17:50 Pre-op diagnosis: Left femoral neck fracture displaced Post-op diagnosis: same Procedure & Clinicians Procedure: Left hip cemented unipolar posterior approach Same procedure as scheduled: Yes Indications: The patient has had progressively worsening left hip pain after an acute fall with a left femoral neck fracture. Non-operative management has failed and the patient has requested unipolar hip replacement. The risks, benefits and alternatives to surgery were discussed with the patient prior to proceeding. Risks discussed included, but were not limited to, failure to relieve pain, leg length discrepancy, dislocation, stiffness, infection, nerve damage, deep venous thrombosis, pulmonary embolism, stroke, coma, heart attack, permanent paralysis and , as well as the potential need for eventual revision of the prosthetic. Surgeon: Enid [facility] Technicians: Fransisca Baltazar Anesthesia Type: General Operative Notes Findings: Displaced left femoral neck fracture, minimal acetabular changes, adequate stability Closure Type: primary Specimen(s): none sent Prosthetic devices, grafts, tissues, transplants, or devices: [employer] cemented Synergy size 13 standard offset, +0, 47mm head, 11mm cementralizer Estimated Blood Loss (mL): 200 Blood products transfused: none Procedure in detail: The patient was seen in the pre-operative area, where the patient identified the left hip as the operative site and this was marked with my initials. The patient received pre-operative antibiotics and was taken to the operating room and placed on the operative table in the supine position after satisfactory anesthesia. A project executive out was performed. Patient was placed in the lateral decubitus position and all bony prominences were carefully padded and the arms were appropriately position. A PA was used thru out the procedure and was essential for retraction and intraoperative positioning and assisting with hemostasis. The left lower extremity was prepared from the ankle to the iliac crest with ChloroPrep in the usual fashion and draped through sterile drapes. The hip was approached through posterolateral approach. Dissection was carried out down through skin and subcutaneous tissues. The fascia was opened. Gelpi retractors were placed. A Charnley retractor was placed. A small amount of inflamed bursa was resected. The piriformis was identified and protected. The other short external rotators and capsule were carefully stripped from the posterior aspect of the femur. They were tagged and carefully retracted. The femoral neck was brought up and an osteotomy was made of the residual femoral neck approximately 1 fingerbreadth above the lesser trochanter. The head was removed without difficulty. It was carefully sized. The acetabulum was meticulously irrigated with normal saline. There were [mild] changes in the acetabulum. The acetabulum was carefully protected with an E tape. The canal was opened with a box cutting osteotome, followed by a T-handled reamer and a lateralizing reamer. The tapered reamers were then used, followed by sequential broaching. A trial head and neck were then placed and the hip relocated and checked for leg length and stability. The patient was stable in the position of sleep, of squatting, and could be put through a range of motion with 45 degrees internal rotation without dislocation. At 90 degrees flexion, internal rotation to 70 degrees was possible before dislocation. This was felt to be satisfactory and the appropriate components were opened, and the trials were removed. The femoral canal was sized and a distal cement restrictor was placed. The bone was meticulously cleaned with pulse lavage. The canal was packed with vaginal packing with epinephrine. Antibiotics cement was mixed and carefully pressurized into the femoral canal. The femoral component was placed without difficulty. A repeat trial reduction showed good range of motion and stability. We did a brief Betadine soak after the cement had hardened. Patient had good range of motion and stability. The final head and neck were placed after carefully irrigating the wound. The capsulomuscular flap was then repaired to the greater trochanter though an awl hole using the tag sutures. The short external rotators were repaired with Ethibond. The fascia todd was closed with interrupted Vicryl. The subcutaneous layer was closed with interrupted 3-0 Vicryl, and the skin with a running 3-0 V-Lock suture and surgical glue. An Aquacel Ag dressing was applied and the patient was taken to recovery having tolerated the procedure well. Complications: none Post-operative Condition: stable Disposition: Acute Care Plan for aftercare: The patient will be maintained on a standard total hip replacement protocol with weight bearing as tolerated and posterior hip precautions. The patient will receive Aspirin and sequential compression devices for DVT prophylaxis. The patient will be discharged home when safe for the home environment.
[2022-11-04] MEDS: CELECOXIB 200 MG CAPSULE PO (17:52)
[2022-11-04] MEDS: VANCOMYCIN 1,000 MG/200 ML PIGGYBACK 200 MG IV (17:52)
[2022-11-04] MEDS: CEFAZOLIN 2 GM/100 ML PREMIX 100 ML IV (18:15)
[2022-11-04] MEDS: TRANEXAMIC ACID 1,000 MG VIAL 1000 MG INJ ×2 (18:20→19:30)
--- NOTE | 2022-11-04 18:39 | SUR.OPER ---
Lateral on padded OR bed. Gel axillary roll. Arms secured on padded armboard with pillow supporting top arm. Padded hip positioner braces x4 - anterior and posterior chest and pelvis. Additional gel pad used anterior pelvis. Gel pad under bottom leg from knee to foot and secured with tape over sheet.
[2022-11-04] MEDS: BUPIVACAINE LIPOSOME 266 MG/20 ML VIAL INJ (18:45)
[2022-11-04] MEDS: BUPIVACAINE 0.25% (PF) 60 ML, EPINEPHrine 0.3 MG INJ (18:46)
[2022-11-04] MEDS: EPINEPHrine 1 MG/10 ML SYRINGE INJ (18:57)
[2022-11-04] MEDS: SODIUM CHLORIDE IRRIG SOLUTION 250 ML, POVIDONE-IODINE SPONGE STICKS 1 APPLIC IRR (19:18)
--- NOTE | 2022-11-04 20:24 | DI.RAD.S_ITS ---
PROCEDURE: XR CHEST 1V INDICATIONS: Low SpO2 in PACU, hypoventilation vs pathologic condition TECHNIQUE: One view of the chest was acquired. COMPARISON: [facility], CR, XR CHEST 1V, 11/04/2022, 0:32. FINDINGS: Surgical changes and devices: None. Lungs and pleura: Lungs are clear. No pleural effusions or pneumothorax. Mediastinum: Mediastinal contours appear normal. Heart size is normal. Bones and chest wall: No suspicious bony lesions. Overlying soft tissues appear unremarkable. IMPRESSION: 1. No acute cardiopulmonary disease. Dictated by: Matthieu Chiang M.D. on 11/04/2022 at 21:56 Approved by: Matthieu Chiang M.D. on 11/04/2022 at 21:56
--- NOTE | 2022-11-04 20:37 | SUR.PHASEI ---
IS provided. Verbal instructions given. Patient able reach 1000-1750mls.
[2022-11-04] MEDS: ALBUTEROL/IPRATROPIUM 3 ML AMPUL INH ×2 (20:52→21:48)
--- NOTE | 2022-11-04 21:07 | SUR.PHASEI ---
Report called to Gianna.
[2022-11-04] MEDS: LACTATED RINGERS 1,000 ML 100 ML IV (21:25)
--- NOTE | 2022-11-04 21:25 | SUR.PHASEI ---
Patient transferred to the floor on 4L NC. Report given to Gianna. O2 sat 87% on 4L NC. RT to eval and treat. Otherwise condition stable.
[2022-11-04] MEDS: ASPIRIN EC 81 MG TABLET PO (21:50)
[2022-11-04] MEDS: DOCUSATE 100 MG CAPSULE PO (21:50)
--- NOTE | 2022-11-04 22:36 | PC.NURSE ---
CARE TRANSFERRED OVER AT 2150 FROM GONZALEZ MONTES.
--- NOTE | 2022-11-04 23:00 | PC.NURSE ---
Addendum entered by Gianna Huerta R.N. 11/28/22 02:05: late entry: 0103 patient medicated with Tramadol due to increase in pain Original Note: Patient returned from surgery at 2118 and is alert and oriented. Breath sounds CTA but upon return was on oxygen at 4L/min per NC with sat of 88%. RT contacted and evaluated patient and felt perfusion in fingers was not sufficient so oximeter placed on toe and oxygen increased to 5L/min and sat was maintaining at 92%. Currently has sat of 97% so oxygen decreased to 4L/min and will continue to monitor and wean from O2 as able. HRR. Denied nausea. BT present and abdomen is soft. Indwelling catheter is patent; urine is clear, dark yellow. Will assist patient with repostioning q2h as ability to be independent decreased related to recent fx/surgery. CMS is intact bilaterally although pulse is weaker on left and is unable to lift leg off bed. Aquacel dressing to left hip is CDI; ice pack in place. Bilateral calf SCD's applied. Fall risk score is moderate but alarm not activated at this time. Provide with water, apple juice and crackers but declined offer of anything additional to eat/drink; tolerated well. Denied pain.
[2022-11-05] MEDS: ACETAMINOPHEN 325 MG TABLET 650 MG PO ×3 (00:08→12:09)
[2022-11-05 01:20] VITALS: BP 116/63; PULSE 69; RESP 20; O2SAT 99
[2022-11-05] MEDS: CEFAZOLIN 2 GM/100 ML PREMIX 100 ML IV ×2 (02:23→10:00)
[2022-11-05 04:50] VITALS: BP 112/46; PULSE 69; RESP 20; TEMP 36.5; O2SAT 96
[2022-11-05 06:31] LABS: Add Manual Diff / Slide Review NO; Basophils Absolute Auto 0 /uL (0-100); Eosinophils Absolute Auto 0 /uL (0-450); Eosinophils Percent Auto 0.1 % (2-4); Hematocrit 33.9 % (36-46); Hemoglobin 11.5 g/dL (12.0-16.0); Lymphocytes Absolute Auto 900 /uL (1100-4500); Lymphocytes Percent Auto 8.2 % (25-40); Mean Corpuscular HGB Conc 33.8 % (30-36); Mean Corpuscular Hemoglobin 30.7 PG (26-34); Mean Corpuscular Volume 90.8 fL (80-100); Monocytes Absolute Auto 700 /uL (0-900); Monocytes Percent Auto 5.8 % (3-14); Neutrophils Absolute Auto 9800 /uL (1500-7000); Neutrophils Percent Auto 85.9 % (50-75); Platelet Count 238 X10^3/uL (150-400); Red Blood Cell Count 3.74 X10^6/uL (4.0-5.2); Red Cell Distribution Width 12.3 % (11.6-14.8); White Blood Cell Count 11.5 X10^3/uL (4.5-11.0)
[2022-11-05 06:39] LABS: Alanine Aminotransferase 25 IU/L (<35); Albumin 3.5 g/dL (3.5-5.0); Albumin Globulin Ratio 1.3 (1.0-2.8); Alkaline Phosphatase 61 U/L (38-126); Aspartate Aminotransferase 27 IU/L (14-36); BUN Creatinine Ratio 16.1 (6-22); Bilirubin Total 0.5 mg/dL (0.2-1.3); Blood Urea Nitrogen 10 mg/dL (7-17); Calcium 8.6 mg/dL (8.4-10.2); Carbon Dioxide 28 mmol/L (22-32); Chloride 103 mmol/L (98-107); Estimated Glomerular Filt Rate > 60 mL/min (>60); Globulin 2.7 g/dL (1.7-4.1); Glucose 116 mg/dL (80-110); HEMOLYSIS < 15 (0-50); Potassium 4.3 mmol/L (3.4-5.1); Sodium 136 mmol/L (137-145); Total Protein 6.2 g/dL (6.3-8.2)
[2022-11-05 07:00] VITALS: BP 124/72; PULSE 71; RESP 18; O2SAT 91
[2022-11-05] MEDS: IBUPROFEN 400 MG TABLET PO ×2 (08:05→12:10)
[2022-11-05] MEDS: DOCUSATE 100 MG CAPSULE PO (08:05)
[2022-11-05] MEDS: ASPIRIN EC 81 MG TABLET PO (08:06)
[2022-11-05 08:25] VITALS: PULSE 72; O2SAT 92
--- NOTE | 2022-11-05 09:04 | PT.IIE ---
Current Diagnoses Fracture of unspecified part of neck of left femur, initial encounter for closed fracture (11/04/22) Fracture of unspecified part of neck of unspecified femur, initial encounter for closed fracture (11/04/22) Surgery Performed Operation Date: 11/04/22 17:00 Actual Procedures p Left hip partial hip replacement(Left) - Enid Maciel MD Medical History (Last Reviewed 11/04/22 @ 07:46 by Enid Maciel MD) Closed left hip fracture Glaucoma Pure hypercholesterolemia Physical Therapy Inpatient Evaluation/Re-Eval M1 PT/OT-IP Prior Functional Status Start: 11/05/22 10:13 Freq: NEEDED Status: Active Protocol: Document 11/05/22 10:14 AB (Rec: 11/05/22 10:44 AB [id number]) Medical Review Prior Functional Status Medical History Reviewed Yes Communication Pt is able to express all needs. Mobility and Gait Pt ambulated without an AD. Activities of Daily Living and IADL's IND with all ADLs and IADLs. Prior Functional Level (Other details) Pt denied hx of falls. Social History Household Members spouse Living Arrangements House Number of Floors (Floors) 3 or More Floors Number of Stairs To Enter/Railing? 4 TYLER with bilateral hand rails (too wide to use both at the same time) Home Environment Standard Height Toilet,Walk in Shower Home Equipment Straight Cane Additional Social History Comment Pt reports he can assist her 07/09 if needed. The 4 TYLER home lead into the middle floor, which is where all her needs will be (she does not need to go up/down any other stairs). M2 PT-IP Current Condition Start: 11/05/22 10:13 Freq: NEEDED Status: Active Protocol: Document 11/05/22 10:14 AB (Rec: 11/05/22 10:44 AB [id number]) Physical Therapy Current Condition Current Condition Evaluation Date 11/05/22 Treatment Diagnosis s/p left hip unipolar hip replacement (posterior approach) Onset Date 11/04/22 M3 PT-IP Subjective Start: 11/05/22 10:13 Freq: NEEDED Status: Active Protocol: Document 11/05/22 10:14 AB (Rec: 11/05/22 10:44 AB [id number]) Subjective Physical Therapy Visit Type Type Initial Evaluation Visit Start Time 09:04 Visit Stop Time 09:47 Total Visit Minutes 43 Notes Pt presents semi supine in bed and is agreeable to PT eval. Physical Therapy Visit Comments Patient Comments Pt denies having any pain or other symptoms currently. Therapy Pain Assessment Pain When Pain Assessed At Rest Pain Present Pain Present Denied Pain M4 PT-IP Mobility and Gait Start: 11/05/22 10:13 Freq: NEEDED Status: Active Protocol: Document 11/05/22 10:14 AB (Rec: 11/05/22 10:44 AB [id number]) PT-Bed Mobility Assessment Rolling Level of Assist Standby Assistance Supine to Sit Supine to Sit Standby Assistance Sit to Supine Sit to Supine Standby Assistance Scooting Scooting to Edge of Bed Standby Assistance Scooting Up and Down in Bed Standby Assistance PT-Transfer Assessment Sit to and From Stand Sit to and from Stand Standby Assistance,Use of Upper Extremities Equipment Transfer Assistive Device Gait Belt,Front Wheeled Walker Transfers Transfer Destination Bed,Chair Transfer Technique Stand Step Pivot Transfer Ability Level of Assist Standby Assistance,Use of Upper Extremities Comments Mobility Comments The pt's BP in supine is 111/ 47 mmHg, in sitting is 121/55 mmHg, and 117/54 in standing, with the pt denying any symptoms with mobility. The pt 's SpO2 desaturated to 85% in sitting and standing, but the pt denies symptoms. When performing bed mobility, STS and transfers, the pt was educated on how to perform mobility while maintaining hip precautions, with the pt demonstrating good carry over with repetition. Gait Assessment Gait Gait Assistance Required: Standby Assistance Distance (Feet) 150 Assistive Devices Assistive Device Gait Belt,Front Wheeled Walker Gait Deviations General Gait Pattern Antalgic,Decreased Stride Length Factors Limiting Gait Function Factors Limiting Gait Function Decreased Activity Tolerance, Decreased Strength,Limited Range of Motion Comments Gait Comments Gait deviations are secondary to surgical procedure. The pt was educated on proper use of FWW for safety and to maintain precautions. The pt denied pain throughout ambulation and demonstrates good safety awareness. Stair Climbing Assessment Evaluation Level of Assist On Stairs Standby Assistance Devices Stair Climbing Assistive Devices Left Railing,Right Railing Technique/Endurance Stair Climbing Direction Ascend and Descend Stair Climbing Technique Step to Step Number of Steps Climbed 3 Query Text: Stair Climbing Set # Repetitions (reps) 2 Comments Stair Climbing Comments Pt performed 1st set using bilateral hand rails and 2nd set using only one hand rail. She was educated on ascending with nonsurgical LE (right) and descending with surgical LE (left), with pt demonstrating good understanding. PT-Balance Assessment Sitting Balance and Reactions Static Sitting Balance Ability Normal Dynamic Sitting Balance Ability Normal Standing Balance and Reactions Static Standing Balance Ability Good Dynamic Standing Balance Ability Good Device Used FWW M5 PT-IP Objective Assessments Start: 11/05/22 10:13 Freq: NEEDED Status: Active Protocol: Document 11/05/22 10:14 AB (Rec: 11/05/22 10:44 AB [id number]) Orientation Orientation/Cognition Level of Alertness Alert Orientation Name,Age,Birthday,Month,Date, Year,Day of Week,Place, Situation Language Function Ability No Deficits Noted Safety Awareness Understands Safety Issues Memory Description No Deficits Noted Gross Range of Motion Upper Extremity ROM Assessment Within Functional Limits Lower Extremity ROM Assessment Left Impaired Strength Upper Extremity Strength Assessment Within Functional Limits Lower Extremity Strength Assessment Left Impaired M6 PT-IP Treatment Start: 11/05/22 10:13 Freq: NEEDED Status: Active Protocol: Document 11/05/22 10:14 AB (Rec: 11/05/22 10:44 AB [id number]) Physical Therapy Treatment Education Education Provided Precautions,Weight Bearing Status,Post-Op Packet,Safety Brace Education Patient M7 PT-IP Assessment and Plan Start: 11/05/22 10:13 Freq: NEEDED Status: Active Protocol: Document 11/05/22 10:14 AB (Rec: 11/05/22 10:44 AB [id number]) PT Summary Assessment and Plan Potential Rehabilitation Potential Good Status of Condition at Evaluation Stable Summary Impairments Pain,ROM,Strength,Balance,Bed Mobility,Transfers,Gait, Activity Tolerance Assessment Summary Pilar Cruz is a 77 year old female patient who is s/p left hip unipolar hip replacement posterior approach performed on 11/04/22 secondary to displaced femoral neck fracture. Today's PT evaluation revealed deficits consistent with this surgical procedure, including LLE weakness, LLE ROM deficits and gait deviations as detailed above. The pt was able to perform all functional mobility with SBA and verbal cues/education to maintain hip precautions. She was able ambulated 150ft with FWW, as well as ascend/descend 3 steps x 2. Based on the pt's current level of function, PT recommends discharge to home with assistance and outpatient PT to improve her deficits and improve post surgical outcomes. PT also recommends using FWW for mobility, with the goal to discharge with LRAD. The pt would benefit from skilled PT during the course of her hospitalization to improve her level of function. Goals Bed Mobility Goal Independent Transfer Goal Independent,Front Wheeled Walker Gait Goal Independent,Front Wheel Walker Gait Distance 200 Other Goals Pt to be able to ascend 4 steps using 1 hand rail independently to show improving strength in order to discharge home safely. Days to Meet Goals 5 Frequency of Treatment Frequency Of Treatment Twice a Day Treatment Plan Physical Therapy Treatment Plan Bed Mobility Training,Transfer Training,Gait Training, Therapeutic Exercise,Balance Retraining,Post Op Education, Discharge Planning,Hot or Cold Pack,Neuromuscular Re-ed, Coordination Retraining,Manual Therapy Other Recommendations and Next Treatment May trial use of SPC if pt Focus demonstrates improving standing balance, and based on pain levels. Precautions Posterior Hip Precautions No Hip Flexion > 90 degrees,No Hip Internal Rotation,No Hip Adduction Weight Bearing Status Weight Bearing Status Weight Bear as Tolerated Recommendations To Nursing Amount of Assist Needed Standby Assistance Discharge Recommendations PT Discharge Recommendations Home with Assistance, Outpatient PT Equipment Needed for Home Before FWW Discharge Transportation Needs at Discharge Private Vehicle
[2022-11-05 11:00] VITALS: O2SAT 100
--- NOTE | 2022-11-05 11:39 | OT.IP.EVAL ---
Current Diagnoses Fracture of unspecified part of neck of left femur, initial encounter for closed fracture (11/04/22) Fracture of unspecified part of neck of unspecified femur, initial encounter for closed fracture (11/04/22) Surgery Performed Operation Date: 11/04/22 17:00 Actual Procedures p Left hip partial hip replacement(Left) - Enid Maciel MD Past Medical History (Last Reviewed 11/04/22 @ 07:46 by Enid Maciel MD) Closed left hip fracture Glaucoma Pure hypercholesterolemia Occupational Therapy Inpatient Evaluation/Re-Eval M1 PT/OT-IP Prior Functional Status Start: 11/05/22 10:13 Freq: NEEDED Status: Active Protocol: Document 11/05/22 10:14 AB (Rec: 11/05/22 10:44 AB [id number]) Medical Review Prior Functional Status Medical History Reviewed Yes Communication Pt is able to express all needs. Mobility and Gait Pt ambulated without an AD. Activities of Daily Living and IADL's IND with all ADLs and IADLs. Prior Functional Level (Other details) Pt denied hx of falls. Social History Household Members spouse Living Arrangements House Number of Floors (Floors) 3 or More Floors Number of Stairs To Enter/Railing? 4 TYLER with bilateral hand rails (too wide to use both at the same time) Home Environment Standard Height Toilet,Walk in Shower Home Equipment Straight Cane Additional Social History Comment Pt reports he can assist her 07/09 if needed. The 4 TYLER home lead into the middle floor, which is where all her needs will be (she does not need to go up/down any other stairs). M2 OT-IP Current Condition Start: 11/05/22 12:32 Freq: Status: Active Protocol: Document 11/05/22 11:19 [facility] (Rec: 11/05/22 12:47 [facility] [id number]) Occupational Therapy Current Condition Current Condition Evaluation Date 11/05/22 Treatment Diagnosis Closed Left Hip FX Diagnosis Onset Date 11/04/22 M3 OT- IP Subjective and Pain Start: 11/05/22 12:32 Freq: Status: Active Protocol: Document 11/05/22 11:19 [facility] (Rec: 11/05/22 12:47 [facility] [id number]) OT- Subjective Occupational Therapy Visit Type Type Initial Evaluation Visit Start Time 11:19 Visit Stop Time 11:39 Total Visit Minutes 20 Occupational Therapy Visit Comments Patient Comments Pt agreed to get dressed, pt's friends in the room. Patient/Caregiver Goals TO go home OT Pain Assessment Pain When Pain Assessed At Rest Pain Present Pain Present Denied Pain M4 OT- IP ADL's Start: 11/05/22 12:32 Freq: Status: Active Protocol: Document 11/05/22 11:19 [facility] (Rec: 11/05/22 12:47 [facility] [id number]) OT [id number] General Evaluation Self-Feeding Ability Independent OT ADL-Grooming General Evaluation Grooming Ability Independent OT ADL-Oral Care General Eval Oral Care Ability Independent OT ADL-Dressing General Eval Upper Body Dressing Ability Independent Lower Body Dressing Ability Standby Assistance,Maximum Assistance Areas Needing Assistance Retrieving/Set-up of Clothing Assistive Devices Dressing Assistive Devices Cigar Head Puncher Comments OT Dressing Comments Pt needing use of doughnut glazier to be able to bryson her brief and pants. Pt educated to bryson her LLE first and take out last. OT ADL-Toileting Comments OT Toileting Comments Pt still waiting to be able to urinate at this time. OT ADL-Bathing Comments OT Bathing Comments Pt will benefit from a shower chair and HHSP. Pt's friend states has a shower stool she can use. Emphasized best to have a higher chair so best able to follow her hip precautions. M5 OT- IP IADL's Start: 11/05/22 12:32 Freq: Status: Active Protocol: Document 11/05/22 11:19 [facility] (Rec: 11/05/22 12:47 [facility] [id number]) OT-Instrumental Activities of Daily Living Deficits IADL Deficits Identified Deficits Home Safety Awareness Awareness of Need for Assistance at Home Good Awareness Ability to Problem Solve Emergency Able to Problem Solve Situations Medication Management Medication Management No Deficits Identified Money Management Money Management No Deficits Identified Meal Preparation Meal Preparation Comments Pt will need assist at this time. Log Buncher Log Buncher Comments Pt will need assist. M6 OT- IP Functional Cognition Start: 11/05/22 12:32 Freq: Status: Active Protocol: Document 11/05/22 11:19 [facility] (Rec: 11/05/22 12:47 [facility] [id number]) Cognitive Factors Limiting Selfcare Function Cognitive Ability Level of Alertness Alert Patient Orientation Name,Age,Birthday,Month,Date, Year,Day of Week,Place, Situation Attention Span Ability Capable of Focused Attention, Capable of Sustained Attention Ability to Follow Commands Able to Follow Multi-Step Commands Memory Description No Deficits Noted Safety Awareness Decreased Ability to Apply Precautions Cognitive Comments Cognitive Assessment Comments Pt needing occasional reminders to follow her hip precautions, especially one of no bending more than 90 degrees. OT- Vision and Hearing OT- Hearing Assessment OT- Hearing Assessment WFL OT- Vision Assessment Visual Acuity Glasses All The Time,Glasses For Reading Visual Attentiveness WFL Occular Pursuits WFL M7 OT- IP Mobility and Balance Start: 11/05/22 12:32 Freq: Status: Active Protocol: Document 11/05/22 11:19 [facility] (Rec: 11/05/22 12:47 [facility] [id number]) OT-Transfer Assessment Sit to and From Stand Sit to and from Stand Standby Assistance Transfers Transfer Ability Standby Assistance Technique Transfer Destination Bed,Chair Transfer Technique Stand Step Pivot Devices Transfer Assistive Devices Gait Belt,Front Wheeled Walker Comments Mobility Comments Pt able to come to stand with SBA and cues to to be sure to slide her LLE back while standing up as pt tends to stand on rely on her RLE more at this time. OT- Balance Assessment Sitting Balance and Reactions Static Sitting Balance Ability Normal Dynamic Sitting Balance Ability Good Standing Balance and Reactions Static Standing Balance Ability Good Dynamic Standing Balance Ability Good M8 OT- IP Objective Assessments Start: 11/05/22 12:32 Freq: Status: Active Protocol: Document 11/05/22 11:19 [facility] (Rec: 11/05/22 12:47 [facility] [id number]) OT Gross Range of Motion Upper Extremity Range of Motion Assessment Within Functional Limits OT Strength Upper Extremity Strength Assessment Within Functional Limits OT-Muscle Tone Assessment Muscle Tone WNL Yes M9 OT- IP Assessment and Plan Start: 11/05/22 12:32 Freq: Status: Active Protocol: Document 11/05/22 11:19 [facility] (Rec: 11/05/22 12:47 [facility] [id number]) OT Summary Assessment and Plan Potential Rehabilitation Potential Excellent Analytic Complexity at Evaluation Low Summary OT Impairments Balance,Functional Mobility, Dressing,Bathing,Shower Transfers Progress Towards Goals Progressing Toward Goals Assessment Summary Pt low complexity and main barrier is being sure to incorporate her hip precautions during ADl and mobility needs. Suggested pt get a BSC and shower chair. Pt to go home with assist and outpt PT. Goals Dressing Goal Independent,Cigar Head Puncher,Sock Aid Toileting Goal Independent Bathing Goal Independent Toilet Transfer Goal Independent Shower Transfer Goal Independent Patient/Caregiver Education Goal Demonstrate Post-Op Precautions Days to Meet Goals 5 Frequency of Treatment Frequency Of Treatment Once a Day Treatment Plan OT Treatment Plan ADL Training,Functional Mobility,Patient/Family Education,Discharge Planning Discharge Recommendations OT Discharge Recommendations Home with Assistance, Outpatient PT Home Equipment Needs BSC, doughnut glazier Transportation Needs at Discharge Private Vehicle
--- NOTE | 2022-11-05 11:59 | PM.DS.1 ---
History of Present Illness History of Present Illness Date Patient Seen: 11/05/22 Time Patient Seen: 10:00 Chief complaint: GLF Narrative: Per admitting provider, 77-year-old woman was chasing after her dog stumbled falling on her left hip and was unable to get off the ground.? She reports no recent fevers, cough, chills, is not having any nausea, vomiting, chest pain abdominal pain. she denies LOC or head trauma. imaging showed left femoral neck fracure and orthopedics asked admission by medicine and possible surgery. Discharge Providers Provider Date of admission: 11/04/22 03:00 Discharge Date: 11/05/22 Primary care physician: Raul Marcelino MD Consults: 11/04/22 03:08 Consult to Occupational Therapy Evaluate & Treat Comment: Physician Instructions: Evaluate and treat Consult to Physical Therapy Evaluate & Treat Comment: Physician Instructions: Evaluate and Treat 11/04/22 04:13 Consult to Dietitian, Adult Routine Comment: Reason For Exam: MNA score = 11 but weight loss was intentional 11/04/22 07:44 Consult to Physician Routine Comment: Consulting Provider: Enid Maciel Reason for consultation: hip fx Has provider been notified: Yes 11/04/22 17:43 Consult to Anesthesiology Routine Comment: Consulting Provider: Anesthesiologist Reason for consultation: Regional block for post operative pain control 11/04/22 21:17 Consult to Discharge Planning Routine Comment: Consult to Occupational Therapy Evaluate & Treat Comment: Physician Instructions: Evaluate and treat Consult to Physical Therapy Evaluate & Treat Comment: Physician Instructions: post op LINDY protocol Discharge provider: Jitendra Saucedo DO Summary Hospital Course Discharge Diagnosis: 1. L hip fracture, pathologic due to osteoporosis, present on admission. 2. Elevated transaminase levels, resolved 3. Leukocytosis, reactive. Hospital Course: 77 F admitted after a fall with resulting L subcapital hip fracture. She underwent orthopedic interventions for fixation. Initial labs showed mild transaminase elevations and leukocytosis, which are favored to be reactive at this time as both improved the following day. She did very well on POD#1 with therapies, and was cleared for discharge home. She will follow up with orthopedic surgery as an outpatient. She was continued on aspirin BID for DVT prophylaxis per orthopedic surgery and sent a few doses of opiate pain medication in case of severe pain. Time Spent with Patient Time spent: Greater than 30 minutes Exam Vital Signs (past 8 hours): - 11/05/22 04:50 11/05/22 07:49 11/05/22 08:25 Temperature 97.7 F Pulse Rate 69 72 Respiratory Rate 20 Blood Pressure 112/46 L Pulse Oximetry 96 92 Oxygen Delivery Method Nasal Cannula Nasal Cannula Oxygen Flow Rate 1 2 Fraction of Inspired Oxygen 28 11/05/22 07:00 Temperature Pulse Rate 71 Respiratory Rate 18 Blood Pressure 124/72 Pulse Oximetry 91 Oxygen Delivery Method Oxygen Flow Rate 2 Fraction of Inspired Oxygen Fraction of Inspired Oxygen 28 SaO2/FiO2 Ratio 328 Oxygen Delivery Method Nasal Cannula Oxygen Flow Rate 2 Narrative Exam Narrative: Gen: NAD, WDWN Pulm: CTA b/l CV: RRR no m/r/g Abd: S NT ND Ext: no edema or joint effusions. Neuro: a&o x3 Objective Labs 11/05/22 06:10 11/05/22 06:10 Labs: Laboratory Results - last 24 hr 11/05/22 11/05/22 06:10 06:10 WBC 11.5 H RBC 3.74 L Hgb 11.5 L Hct 33.9 L MCV 90.8 MCH 30.7 MCHC 33.8 RDW 12.3 Plt Count 238 Neut % (Auto) 85.9 H Lymph % (Auto) 8.2 L Charles % (Auto) 5.8 Eos % (Auto) 0.1 L Baso % (Auto) 0.0 Neut # (Auto) 9800 H Lymph # (Auto) 900 L Charles # (Auto) 700 Eos # (Auto) 0 Baso # (Auto) 0 Sodium 136 L Potassium 4.3 Chloride 103 Carbon Dioxide 28 BUN 10 Creatinine 0.62 Estimated GFR > 60 BUN/Creatinine Ratio 16.1 Glucose 116 H Calcium 8.6 Total Bilirubin 0.5 AST 27 ALT 25 Alkaline Phosphatase 61 Total Protein 6.2 L Albumin 3.5 Globulin 2.7 Albumin/Globulin Ratio 1.3 [facility] Medical History Closed left hip fracture Glaucoma Pure hypercholesterolemia Social History household members: spouse Smoking Status: Never smoker alcohol intake: current Discharge Plan Discharge Plan Patient Disposition: Home Provider Discharge Comment: You were admitted to the hospital with a hip fracture. You did very well with therapies. In case of severe pain, a strong pain reliever was sent to your pharmacy but if controlled with tylenol and motrin you do not have to pick this up. Aspirin for 6 weeks was sent to your pharmacy as well. Discharge orders & Medications Prescriptions: New aspirin 81 mg Tablet,Delayed Release (Dr/Ec) 81 mg PO BID 42 Days Qty: 84 0RF oxycodone 5 mg Tablet 5 mg PO Q3H PRN (Reason: Pain, Moderate (4-6)) Qty: 10 0RF Continued brimonidine 0.2 % drops 1 drp EYE-BOTH BID timolol maleate 0.5 % drops 1 drp EYE-BOTH BID Follow up/Referrals: Raul Marcelino MD [Primary Care Provider] - Enid Maciel MD [Physician] - 11/18/22 1:00 pm (Appt:11/18 1:00 check in for a 1:[address] Maciel @ [address] [place] [address] ) Diet/Activity/Treatments Diet: Diet as Tolerated and Regular Activity: As tolerated, posterior hip precautions. Visit Report/Discharge Packet Instructions: DI for Hip Fracture, DI for Hip Replacement, How to Prevent Falls Stand Alone Forms: Patient Portal/API, Stroke Signs & Symptoms Discharge Data Primary Care Provider: Raul Marcelino Discharges patient from system. Discharge Date/Time: 11/05/22 14:05
--- NOTE | 2022-11-05 13:00 | CM.DPC ---
DCP Discharge Home Per MD, pt medically stable to d/c today if cleared by PT/OT. Per PT/OT, pt participated well and completed CG training with spouse bedside and recommending safe d/c home with spouse assist and outpt PT. Plan: Patient to d/c home this afternoon via spouse POV and outpt f/u and no further SW needs at this time. EMELI Christian
--- NOTE | 2022-11-05 13:25 | PC.NURSE ---
Patient denies pain, nausea, SOB, chest pain, VSS, O2 sats are 100% on RA. OOB w/ SBA FWW and gait belt, tolerates ambulation well. Worked with PT/OT, cleared for discharge. Porter d/c'd this morning at 1020, pt voided 250 cc this afternoon. Cleared for discharge by hospitalist and surgery. Discharge education given to patient and friend, informed patient of follow-up appt on 11/18, patient verbalized understanding and all questions answered. IV removed. Staff member escorted patient to private vehicle via wheelchair.
--- NOTE | 2022-11-05 14:04 | PM.PNPO.1 ---
Subjective Subjective Date Patient Seen: 11/05/22 Time Patient Seen: 14:04 Interval history: Left hip pain is mild. Denies fever/ chills. No nausea /vomiting. Exam Vital Signs (past 8 hours): - 11/05/22 07:49 11/05/22 08:25 11/05/22 07:00 Pulse Rate 72 71 Respiratory Rate 18 Blood Pressure 124/72 Pulse Oximetry 92 91 Oxygen Delivery Method Nasal Cannula Nasal Cannula Oxygen Flow Rate 2 2 Fraction of Inspired Oxygen 28 11/05/22 11:00 Pulse Rate Respiratory Rate Blood Pressure Pulse Oximetry 100 Oxygen Delivery Method Oxygen Flow Rate 0 Fraction of Inspired Oxygen Fraction of Inspired Oxygen 28 SaO2/FiO2 Ratio 328 Oxygen Delivery Method Nasal Cannula Oxygen Flow Rate 0 Narrative Exam Narrative: Pleasant 77-year-old female sitting comfortably in bedside chair all dressed ready to go home. Dressing is clean, dry intact. Motor function is intact distal left lower extremity. Const General: cooperative Nutritional Appearance: average body habitus Orientation: alert Resp Effort & Inspection: normal respiratory effort and able to speak in complete sentences Objective Labs 11/05/22 06:10 11/05/22 06:10 Labs: Laboratory Results - last 24 hr 11/05/22 11/05/22 06:10 06:10 WBC 11.5 H RBC 3.74 L Hgb 11.5 L Hct 33.9 L MCV 90.8 MCH 30.7 MCHC 33.8 RDW 12.3 Plt Count 238 Neut % (Auto) 85.9 H Lymph % (Auto) 8.2 L [place] % (Auto) 5.8 Eos % (Auto) 0.1 L Baso % (Auto) 0.0 Neut # (Auto) 9800 H Lymph # (Auto) 900 L [place] # (Auto) 700 Eos # (Auto) 0 Baso # (Auto) 0 Sodium 136 L Potassium 4.3 Chloride 103 Carbon Dioxide 28 BUN 10 Creatinine 0.62 Estimated GFR > 60 BUN/Creatinine Ratio 16.1 Glucose 116 H Calcium 8.6 Total Bilirubin 0.5 AST 27 ALT 25 Alkaline Phosphatase 61 Total Protein 6.2 L Albumin 3.5 Globulin 2.7 Albumin/Globulin Ratio 1.3 PFSH Medical History Closed left hip fracture Glaucoma Pure hypercholesterolemia Social History household members: spouse Smoking Status: Never smoker alcohol intake: current Assessment & Plan Post-op Postoperative Procedures: Procedures Operation Date: 11/04/22 17:00 Actual Procedure Side Surgeon p Left hip partial hip replacement Left Enid Maciel MD Postoperative day: 1 Postoperative status narrative: Patient progressing as expected Postoperative plan: routine post-op care Postoperative plan narrative: Full weight-bearing, posterior hip precautions x6 weeks Multimodal pain management 81 mg aspirin b.i.d. x6 weeks Patient progressing as expected and can be discharged when stable per hospitalist.
== END 2022-11-05 14:05 | disposition home or self-care (01) | DRG 521 ==
LOC: ED 11-04 01:05 → AC 11-04 03:01
PROVIDERS: Internal Medicine; Orthopaedic Surgery; Admitting Provider Hospitalist; Emergency Provider Emergency Medicine; PCP Pediatrics; Referring Provider Emergency Medicine; Visit Provider Hospitalist
PROC: 0SRS0JZ Replacement of Left Hip Joint, Femoral Surface with Synthetic Substitute, Open Approach (ICD-10-PCS; CPT 27125; principal; 2022-11-04 17:00)
DX: M80.052A Age-related osteoporosis with current pathological fracture, left femur, initial encounter for fracture (principal); J95.821 Acute postprocedural respiratory failure; H40.9 Unspecified glaucoma
CPT/HCPCS: 36415; 71045; 73502; 80053; 85025; 85610; 85730; 93005; 94762; 96374; 97161; 97165; 97535; 99284; 99285; C1776; C9290; J0171; J0690; J1100; J1170; J2405; J2704; J3010; J3490

== ENCOUNTER → 2023-04-24 07:51 | Outpatient (CLI) | payer OTHER, SELFPAY ==
[2022-11-04 03:56] VITALS: BMI 25.0
[2023-04-24 08:47] LABS: Add Manual Diff / Slide Review NO; Basophils Absolute Auto 100 /uL (0-100); Basophils Percent Auto 0.9 % (0-2); Eosinophils Absolute Auto 300 /uL (0-450); Eosinophils Percent Auto 5.1 % (2-4); Hematocrit 39.9 % (36-46); Hemoglobin 13.5 g/dL (12.0-16.0); Lymphocytes Absolute Auto 2100 /uL (1100-4500); Lymphocytes Percent Auto 32.6 % (25-40); Mean Corpuscular HGB Conc 33.9 % (30-36); Mean Corpuscular Hemoglobin 30.1 PG (26-34); Monocytes Absolute Auto 400 /uL (0-900); Monocytes Percent Auto 6.8 % (3-14); Neutrophils Absolute Auto 3500 /uL (1500-7000); Neutrophils Percent Auto 54.6 % (50-75); Platelet Count 327 X10^3/uL (150-400); Red Blood Cell Count 4.48 X10^6/uL (4.0-5.2); Red Cell Distribution Width 12.6 % (11.6-14.8); White Blood Cell Count 6.3 X10^3/uL (4.5-11.0)
[2023-04-24 09:07] LABS: Alanine Aminotransferase 18 IU/L (<35); Albumin 4.1 g/dL (3.5-5.0); Albumin Globulin Ratio 1.4 (1.0-2.8); Alkaline Phosphatase 83 U/L (38-126); Aspartate Aminotransferase 20 IU/L (14-36); BUN Creatinine Ratio 21.4 (6-22); Bilirubin Total 0.8 mg/dL (0.2-1.3); Blood Urea Nitrogen 18 mg/dL (7-17); Calcium 9.3 mg/dL (8.4-10.2); Carbon Dioxide 29 mmol/L (22-32); Chloride 108 mmol/L (98-107); Cholesterol 236 mg/dL (140-199); Estimated Glomerular Filt Rate > 60 mL/min (>60); Globulin 2.9 g/dL (1.7-4.1); Glucose 114 mg/dL (80-110); HDL Cholesterol 62 mg/dL (40-60); HEMOLYSIS < 15 (0-50); LDL Cholesterol Calculated 149 mg/dL (<100); Potassium 4.5 mmol/L (3.4-5.1); Sodium 141 mmol/L (137-145); Triglycerides 126 mg/dL (35-150)
== END ==
PROVIDERS: PCP Family Medicine; Referring Provider Family Medicine; Visit Provider Family Medicine
DX: R79.89 Other specified abnormal findings of blood chemistry (principal)
CPT/HCPCS: 36415; 80053; 80061; 85025

== ENCOUNTER → 2023-10-07 07:48 | Outpatient (CLI) | payer OTHER, SELFPAY ==
[2022-11-04 03:56] VITALS: BMI 25.0
--- NOTE | 2023-10-07 07:49 | DI.MG.S_ITS ---
BILATERAL DIGITAL SCREENING MAMMOGRAM 3D/2D WITH CAD: 10/07/2023 CLINICAL: Routine screening. Comparison is made to exams dated: 07/07/2022 mammogram, 06/16/2021 mammogram, and 06/12/2020 mammogram - [facility]. Both breasts are almost entirely fatty (category a/<25% glandular tissue). Current study was also evaluated with a Computer Aided Detection (CAD) system. No significant masses, calcifications, or other findings are seen in either breast. There has been no significant interval change. IMPRESSION: NEGATIVE There is no mammographic evidence of malignancy. A 1 year screening mammogram is recommended. Based on the Tyrer Cuzick model (a risk assessment model) the patient's lifetime risk is 2.2% and her 10 year risk is 0.0%. According to the ACR, ACS, and NCCN guidelines, an annual breast MRI exam along with mammogram is recommended if the patient's lifetime risk is 20% or greater. This exam was interpreted at Station ID: [id number]. NOTE: For mammograms, a report in lay terms will be sent to the patient. Approximately 15% of breast malignancies will not be visualized mammographically. In the management of a palpable breast mass, a negative mammogram must not discourage biopsy of a clinically suspicious lesion. Electronically Signed By: Edda shepherd/ledy:10/07/2023 16:47:34 letter sent: Normal Exam ACR BI-RADS Category 1: Negative [id number]
== END ==
PROVIDERS: PCP Family Medicine; Referring Provider Family Medicine; Visit Provider Family Medicine
DX: Z12.31 Encounter for screening mammogram for malignant neoplasm of breast (principal); R92.313 Mammographic fatty tissue density, bilateral breasts
CPT/HCPCS: 77063; 77067

== ENCOUNTER 2024-12-21 16:29 | Emergency (ER) | payer OTHER, SELFPAY ==
[2022-11-04 03:56] VITALS: BMI 25.0
[2024-12-21 16:37] VITALS: BP 116/73; PULSE 97; RESP 16; TEMP 36.1; O2SAT 97; BMI 25.0
--- NOTE | 2024-12-21 16:46 | DI.CT.S_ITS ---
PROCEDURE: CT ABDOMEN PELVIS W CON
--- NOTE | 2024-12-21 16:48 | ED_ITS ---
HPI - Abdominal Pain
--- NOTE | 2024-12-21 16:48 | ED.ABDPAIN ---
HPI - Abdominal Pain <Jone Juárez, DO - Last Filed: 12/21/24 18:44> General Chief Complaint: Abdominal Pain Stated Complaint: poss blockage - dr recommended come in Time Seen by Provider: 12/21/24 16:48 History of Present Illness HPI narrative: 79-year-old sent over from the family practice office with concerns for increased color of urine being extremely yellow, along with body aches back pain urinary discomfort. She just came back from [facility] has few weeks. She denies any fever, chills, cough, sore throat, nausea, vomiting, diarrhea, chest pain, shortness of breath. She she has also noticed fatigue and weakness generalized. Other than what is stated 14 point review of system is negative. Related Data Home Medications ?Medication ?Instructions ?Recorded ?Confirmed brimonidine 0.2 % eye drops 1 drp EYE-BOTH BID 11/04/22 01/05/24 timolol maleate 0.5 % eye drops 1 drp EYE-BOTH BID 11/04/22 01/05/24 Allergies Allergy/AdvReac Type Severity Reaction Status Date / Time codeine AdvReac Mild Nausea Verified 01/05/24 09:54 Review of Systems <Jone Juárez, DO - Last Filed: 12/21/24 18:44> Review of Systems ROS Unobtainable: All systems reviewed & are unremarkable except as noted in HPI and below Patient History <Jone Juárez, DO - Last Filed: 12/21/24 18:44> Medical History Encounter for subsequent annual wellness visit (AWV) in Medicare patient Closed left hip fracture Glaucoma Pure hypercholesterolemia Social History household members: spouse alcohol intake: current alcohol intake frequency: 0-2 drinks per day Exam <Jone Juárez, DO - Last Filed: 12/21/24 18:44> Narrative Exam Narrative: GENERAL: [79] year old patient appears stated age. Well-developed patient, in mild distress. HEAD: Atraumatic. Normocephalic. EYES: Pupils equal round and reactive. Extraocular motions intact. No scleral icterus. No injection or drainage. ENT: Nose without bleeding, purulent drainage. Throat without erythema, tonsillar hypertrophy or exudate. Airway patent. NECK: Trachea midline. Non tender CARDIOVASCULAR: Regular rate and rhythm without murmurs, gallops, or rubs. RESPIRATORY: Clear to auscultation. Breath sounds equal bilaterally. No wheezes, rales, or rhonchi. GASTROINTESTINAL: Abdomen soft, non-tender, nondistended. EXTREMITIES: No edema or joint tenderness. BACK: Nontender without deformity or crepitance. No flank tenderness. NEURO: AOx3. SKIN: No rash or erythema of visible areas Initial Vital Signs Initial Vital Signs: Vital Signs Temperature 97.0 F L 12/21/24 16:37 Pulse Rate 97 H 12/21/24 16:37 Respiratory Rate 16 12/21/24 16:37 Blood Pressure 116/73 12/21/24 16:37 Pulse Oximetry 97 12/21/24 16:37 Oxygen Delivery Method Room Air 12/21/24 16:37 <Jitendra Zuluaga, DO - Last Filed: 12/21/24 22:19> Initial Vital Signs Initial Vital Signs: Vital Signs Temperature 97.0 F L 12/21/24 16:37 Pulse Rate 97 H 12/21/24 16:37 Respiratory Rate 16 12/21/24 16:37 Blood Pressure 116/73 12/21/24 16:37 Pulse Oximetry 97 12/21/24 16:37 Oxygen Delivery Method Room Air 12/21/24 16:37 Course <Jone Juárez, DO - Last Filed: 12/21/24 18:44> Orders Ordered: ED Orders 12/21/24 16:46 CT abdomen pelvis w con Stat 12/21/24 17:12 Complete Blood Count AUTO DIFF Stat Comprehensive Metabolic Panel Stat Lipase Stat 12/21/24 18:42 US abdomen limited Stat Ondansetron HCl (Ondansetron 4 Mg/2 Ml Inj) 4 mg IV NOW PRN PRN Reason: Nausea And Vomiting Ondansetron HCl (Ondansetron 4 Mg Odt) 4 mg PO NOW PRN PRN Reason: Nausea And Vomiting Discontinued Medications Sodium Chloride (Normal Saline 0.9%) 1,000 mls @ 1,000 mls/hr IV BOLUS ONE Stop: 12/21/24 17:45 Last Infusion: 12/21/24 19:12 Dose: Infused Documented By: Admin: 12/21/24 18:18 Dose: 1,000 mls/hr Documented By: DAISY Vital Signs Vital signs: Vital Signs - 8 hr 12/21/24 16:37 12/21/24 20:59 Temperature 97.0 F L Pulse Rate 97 H 96 H Respiratory Rate 16 18 Blood Pressure 116/73 146/70 H Pulse Oximetry 97 94 Oxygen Delivery Method Room Air Room Air <Jitendra Zuluaga DO - Last Filed: 12/21/24 22:19> Orders Ordered: ED Orders 12/21/24 16:46 CT abdomen pelvis w con Stat 12/21/24 17:12 Complete Blood Count AUTO DIFF Stat Comprehensive Metabolic Panel Stat Lipase Stat 12/21/24 18:42 US abdomen limited Stat Ondansetron HCl (Ondansetron 4 Mg/2 Ml Inj) 4 mg IV NOW PRN PRN Reason: Nausea And Vomiting Ondansetron HCl (Ondansetron 4 Mg Odt) 4 mg PO NOW PRN PRN Reason: Nausea And Vomiting Discontinued Medications Sodium Chloride (Normal Saline 0.9%) 1,000 mls @ 1,000 mls/hr IV BOLUS ONE Stop: 12/21/24 17:45 Last Infusion: 12/21/24 19:12 Dose: Infused Documented By: Admin: 12/21/24 18:18 Dose: 1,000 mls/hr Documented By: DAISY Vital Signs Vital signs: Vital Signs - 8 hr 12/21/24 16:37 12/21/24 20:59 Temperature 97.0 F L Pulse Rate 97 H 96 H Respiratory Rate 16 18 Blood Pressure 116/73 146/70 H Pulse Oximetry 97 94 Oxygen Delivery Method Room Air Room Air MDM - Abdominal Pain <Jone Juárez, DO - Last Filed: 12/21/24 18:44> Lab Data 12/21/24 17:12 12/21/24 17:12 Labs: Lab Results 12/21/24 Range/Units 17:12 WBC 7.3 (4.5-11.0) X10^3/uL RBC 4.47 (4.0-5.2) X10^6/uL Hgb 13.6 (12.0-16.0) g/dL Hct 39.0 (36-46) % MCV 87.3 (80-100) fL MCH 30.3 (26-34) PG MCHC 34.7 (30-36) % RDW 13.0 (11.6-14.8) % Plt Count 317 (150-400) X10^3/uL Neut % (Auto) 74.6 (50-75) % Lymph % (Auto) 13.0 L (25-40) % [place] % (Auto) 6.8 (3-14) % Eos % (Auto) 5.2 H (2-4) % Baso % (Auto) 0.4 (0-2) % Neut # (Auto) 5400 (3674-8739) /uL Lymph # (Auto) 900 L (6278-2905) /uL [place] # (Auto) 500 (0-900) /uL Eos # (Auto) 400 (0-450) /uL Baso # (Auto) 0 (0-100) /uL Sodium 134 L (137-145) mmol/L Potassium 3.4 (3.4-5.1) mmol/L Chloride 96 L (98-107) mmol/L Carbon Dioxide 27 (22-32) mmol/L BUN 15 (7-17) mg/dL Creatinine 0.71 (0.52-1.04) mg/dL Estimated GFR > 60 (>60) mL/min BUN/Creatinine Ratio 21.1 (6-22) Glucose 129 H (70-99) mg/dL Calcium 8.5 (8.4-10.2) mg/dL Total Bilirubin 3.0 H (0.2-1.3) mg/dL AST 171 H (14-36) IU/L ALT 275 H (<35) IU/L Alkaline Phosphatase 320 H (38-126) U/L Total Protein 7.4 (6.3-8.2) g/dL Albumin 4.1 (3.5-5.0) g/dL Globulin 3.3 (1.7-4.1) g/dL Albumin/Globulin Ratio 1.2 (1.0-2.8) Lipase 97 (23-300) U/L Imaging Data CT scan - abdomen/pelvis: Radiologist's Impression: [address] [address] [address] Scan Report Signed Patient: Pilar Cruz MR#: [id number] : 1945 Acct:[id number] Age/Sex: 79 / F Date of Service: 12/21/24 Loc: ED Accession Number: [id number] Procedure: CT abdomen pelvis w con Ordering Provider: Jone uJárez D.O. PROCEDURE: CT ABDOMEN PELVIS W CON INDICATIONS: abd pain back pain TECHNIQUE: After the administration of intravenous contrast, axial sections acquired from the lung bases to the pubic symphysis. Coronal and sagittal reformats were performed. For radiation dose reduction, the following was used: automated exposure control, adjustment of mA and/or kV according to patient size. COMPARISON: None. FINDINGS: Image quality: Diagnostic. Lower Chest: No significant findings. ABDOMEN: Liver: No solid mass. Gallbladder: Contracted around a gallstone. Biliary ducts: No biliary dilation. Pancreas: No ductal dilation. Spleen: Size is within normal limits. Adrenal Glands: No adrenal nodules. Kidneys and Ureters: No hydronephrosis. No solid mass. No complex renal cystic lesion which requires follow up. Stomach and Bowel: Normal colonic caliber, without significant wall thickening. Colonic diverticulosis without evidence of diverticulitis. Normal appendix. Peritoneum: No abnormal intraperitoneal fluid. No free air. Ventral Wall: No significant ventral hernia. Abdominal Nodes: No retroperitoneal or mesenteric adenopathy by size criteria. Vessels: Aorta and inferior vena cava are normal in size. PELVIS: Pelvic Organs: Unremarkable. Bladder: No bladder wall thickening, accounting for underdistention. Pelvic Nodes: No enlarged lymph nodes. Miscellaneous: No inguinal hernias are seen. Bones: No aggressive osseous abnormality. Degenerative disc disease of the lumbar spine. Grade 1 anterolisthesis of L4 on L5 due to facet arthrosis, resulting in [id number] spinal canal narrowing. IMPRESSION: No acute abnormality. Colonic diverticulosis without evidence of diverticulitis. Cholelithiasis without suspicious wall thickening or adjacent fat stranding to suggest acute cholecystitis. Dictated by: Louie Elam M.D. on 12/21/2024 at 18:27 Approved by: Louie Elam M.D. on 12/21/2024 at 18:29 [facility] Narrative Medical decision making narrative: All lab work, vital signs, nurse triage note, medication list, previous ER visits, and all imaging studies reviewed. WBC 7.3 hemoglobin 13.6 platelets 317 sodium 134 as in 3.4 chloride 96 CO2 27 BUN 15 Cr 0.71 glucose 129 T bili 3.0 AST 170 ALT 270 alk-phos [address] abdomen and pelvis showed no acute abnormality. Colonic diverticulosis without evidence of diverticulitis. Cholelithiasis without suspicious wall thickening or adjacent fat stranding to suggest acute cholecystitis. Ultrasound right upper quadrant pending. Patient signed out to Dr. Zuluaga at shift change pending final disposition. <Jitendra Zuluaga, DO - Last Filed: 12/21/24 22:19> Lab Data Labs: Lab Results 12/21/24 Range/Units 17:12 WBC 7.3 (4.5-11.0) X10^3/uL RBC 4.47 (4.0-5.2) X10^6/uL Hgb 13.6 (12.0-16.0) g/dL Hct 39.0 (36-46) % MCV 87.3 (80-100) fL MCH 30.3 (26-34) PG MCHC 34.7 (30-36) % RDW 13.0 (11.6-14.8) % Plt Count 317 (150-400) X10^3/uL Neut % (Auto) 74.6 (50-75) % Lymph % (Auto) 13.0 L (25-40) % [place] % (Auto) 6.8 (3-14) % Eos % (Auto) 5.2 H (2-4) % Baso % (Auto) 0.4 (0-2) % Neut # (Auto) 5400 (7113-7516) /uL Lymph # (Auto) 900 L (9667-9183) /uL [place] # (Auto) 500 (0-900) /uL Eos # (Auto) 400 (0-450) /uL Baso # (Auto) 0 (0-100) /uL Sodium 134 L (137-145) mmol/L Potassium 3.4 (3.4-5.1) mmol/L Chloride 96 L (98-107) mmol/L Carbon Dioxide 27 (22-32) mmol/L BUN 15 (7-17) mg/dL Creatinine 0.71 (0.52-1.04) mg/dL Estimated GFR > 60 (>60) mL/min BUN/Creatinine Ratio 21.1 (6-22) Glucose 129 H (70-99) mg/dL Calcium 8.5 (8.4-10.2) mg/dL Total Bilirubin 3.0 H (0.2-1.3) mg/dL AST 171 H (14-36) IU/L ALT 275 H (<35) IU/L Alkaline Phosphatase 320 H (38-126) U/L Total Protein 7.4 (6.3-8.2) g/dL Albumin 4.1 (3.5-5.0) g/dL Globulin 3.3 (1.7-4.1) g/dL Albumin/Globulin Ratio 1.2 (1.0-2.8) Lipase 97 (23-300) U/L MDM Narrative Medical decision making narrative: All lab work, vital signs, nurse triage note, medication list, previous ER visits, and all imaging studies reviewed. WBC 7.3 hemoglobin 13.6 platelets 317 sodium 134 as in 3.4 chloride 96 CO2 27 BUN 15 Cr 0.71 glucose 129 T bili 3.0 AST 170 ALT 270 alk-phos [address] abdomen and pelvis showed no acute abnormality. Colonic diverticulosis without evidence of diverticulitis. Cholelithiasis without suspicious wall thickening or adjacent fat stranding to suggest acute cholecystitis. Ultrasound right upper quadrant pending. Patient signed out to Dr. Zuluaga at shift change pending final disposition. After patient was signed out to [place] patient did have ultrasound performed, did show possible acute cholecystitis, however given elevation of LFTs and alk phos patient will require transfer for ERCP. Did have a discussion with Dr. Davis at would be held who accepts the transfer Discharge Plan Departure Patient Disposition: General Acute Hospital Clinical Impression: Choledocholithiasis with acute cholecystitis Prescriptions: No Action brimonidine 0.2 % drops 1 drp EYE-BOTH BID timolol maleate 0.5 % drops 1 drp EYE-BOTH BID Referrals: Bo Roth DO [Primary Care Provider, Family Practice]
[2024-12-21 17:24] LABS: Add Manual Diff / Slide Review NO; Hematocrit 39.0 % (36-46); Hemoglobin 13.6 g/dL (12.0-16.0); Lymphocytes Absolute Auto 900 /uL (1100-4500); Mean Corpuscular HGB Conc 34.7 % (30-36); Mean Corpuscular Hemoglobin 30.3 PG (26-34); Mean Corpuscular Volume 87.3 fL (80-100); Platelet Count 317 X10^3/uL (150-400)
[2024-12-21 17:38] LABS: Alanine Aminotransferase 275 IU/L (<35); Albumin 4.1 g/dL (3.5-5.0); Albumin Globulin Ratio 1.2 (1.0-2.8); Alkaline Phosphatase 320 U/L (38-126); Blood Urea Nitrogen 15 mg/dL (7-17); Calcium 8.5 mg/dL (8.4-10.2); Carbon Dioxide 27 mmol/L (22-32); Chloride 96 mmol/L (98-107); Estimated Glomerular Filt Rate > 60 mL/min (>60); Globulin 3.3 g/dL (1.7-4.1); Glucose 129 mg/dL (70-99); HEMOLYSIS < 15 (0-50); Lipase 97 U/L (23-300); Potassium 3.4 mmol/L (3.4-5.1); Sodium 134 mmol/L (137-145); Total Protein 7.4 g/dL (6.3-8.2)
[2024-12-21] MEDS: SODIUM CHLORIDE 0.9% 1,000 ML 1000 ML IV (18:18)
--- NOTE | 2024-12-21 18:42 | DI.US.S_ITS ---
PROCEDURE: US ABDOMEN LIMITED
[2024-12-21 20:59] VITALS: BP 146/70; PULSE 96; RESP 18; O2SAT 94
[2024-12-21 22:36] VITALS: BP 130/59; PULSE 93; RESP 18; TEMP 37.4; O2SAT 93
== END 2024-12-21 23:10 | disposition short-term general hospital (02) ==
PROVIDERS: Family Medicine; Emergency Provider Student in an Organized Health Care Education/Training Program; PCP Family Medicine
DX: K80.42 Calculus of bile duct with acute cholecystitis without obstruction (principal)
CPT/HCPCS: 36415; 74177; 76705; 80053; 83690; 85025; 96360; 99284; J7030; Q9967